=== PATIENT | female | born 1940 | race Caucasian/White ===

== ENCOUNTER → 2016-10-27 | Outpatient (CLI) | payer MEDICARE, OTHER | END | disposition home or self-care (01) | LOC: GMAB 10:23 | PROVIDERS: ATTEND Family Medicine | DX: E78.2 Mixed hyperlipidemia (principal) ==

== ENCOUNTER → 2016-11-09 | Outpatient (CLI) | payer MEDICARE, OTHER | END | disposition home or self-care (01) | LOC: GMAB 14:11 | PROVIDERS: ATTEND Family Medicine | DX: R30.0 Dysuria (principal) ==

== ENCOUNTER 2016-11-25 17:56 | Emergency (ER) | payer MEDICARE, OTHER ==
[2016-11-25] MEDS ORDERED: SODIUM CHLORIDE 0.9% 1000ML 1,000 ML IVS ONE (18:26)
[2016-11-25 18:28] VITALS: O2SAT 94
--- NOTE | 2016-11-25 18:29 | ED.PDOC ---
History of Present Illness - General Chief Complaint: GI Problem Stated Complaint: Diarrhea and fever X 3 days Time Seen by Provider: 11/25/16 18:16 Information Source: patient, RN notes reviewed, Vital Signs reviewed, family Exam Limitations: no limitations - History of Present Illness Initial Comments: Patient comes in with 3 days of diarrhea, fever, abd. pain and nausea. She recently finished 5 days of Cipro. Also, her recently completed treatment for H.Pylori. Abdominal Pain Onset Location: generalized abdomen Pain Radiation: no radiation Quality: moderate, cramping Timing/Duration: days - 3 Improving Factors: nothing Worsening Factors: nothing Associated Symptoms: diarrhea, fever/chills, fatigue, nausea/vomiting Review of Systems - Review of Systems Constitutional: States: chills, fever, malaise EENTM: States: no symptoms reported Respiratory: States: no symptoms reported. Denies: cough, short of breath Cardiology: States: no symptoms reported. Denies: chest pain, palpitations Gastrointestinal/Abdominal: States: see HPI, abdominal pain, diarrhea, nausea. Denies: vomiting Genitourinary: States: other - just finished treatment for UTI Musculoskeletal: States: no symptoms reported Skin: States: no symptoms reported Neurological: States: no symptoms reported. Denies: headache Past Medical History (General) - Patient Medical History Hx of COPD: Yes Hx Cardiac Disorders: Yes - CAD - Vaccination History Hx Influenza Vaccination: Yes - 05/2015 - Social History Hx Tobacco Use: Yes Family Medical History - Family History Mother Family History: Unknown Living Status: Unknown Physical Exam - Physical Exam General Appearance: Alert, Comfortable, No apparent distress, Well Developed, Well Groomed, Well Hydrated, Well Nourished Respiratory: chest non-tender, lungs clear, normal breath sounds, no respiratory distress, no accessory muscle use Cardiovascular/Chest: normal peripheral pulses, regular rate, rhythm, no edema, no gallop, no JVD, no murmur Peripheral Pulses: 2+ Gastrointestinal/Abdominal: abnormal bowel sounds - hyperactive, distended, tenderness - moderate, generalized without guarding or rebound Extremity: normal range of motion, non-tender, normal inspection, no pedal edema Neurologic: no motor/sensory deficits, alert, normal mood/affect, oriented x 3 Skin Exam: normal color, warm/dry Comments: Vital Signs - 24 hr 11/25/16 18:22 Temperature 97.0 F L Pulse Rate [ 82 pulse ox] Respiratory 16 Rate Blood Pressure 152/81 [right brachial ] O2 Sat by Pulse 94 L Oximetry Progress - Progress Progress: 11/25/16 19:57 Discussed lab results and treatment plan with patient and daughter. She has not been able to have a bowel movement in the ER so will send home with sample cup to collect sample. Advised no further Imodium because we want the body to flush out what ever is causing the diarrhea. Recommended resuming a regular diet and increasing fluid/water intake. - Results/Orders Results/Orders: Laboratory Tests 11/25/16 18:47 WBC 6.9 RBC 4.84 Hgb 14.6 Hct 43.5 MCV 90.0 MCH 30.2 MCHC 33.6 RDW 12.5 Plt Count 142 MPV 9.8 Absolute Neuts (auto) 4.10 Absolute Lymphs (auto) 2.00 Absolute Monos (auto) 0.60 Absolute Eos (auto) 0.10 Absolute Basos (auto) 0.10 Neutrophils % 59.9 Lymphocytes % 29.2 Monocytes % 8.4 Eosinophils % 1.6 Basophils % 0.9 Sodium 138 Potassium 3.4 L Chloride 107 Carbon Dioxide 27 Anion Gap 7.4 L BUN 15 Creatinine 0.78 BUN/Creatinine Ratio 19.2 Random Glucose 138 H Serum Osmolality 278.7 Calcium 8.8 Total Bilirubin 0.3 AST 17 ALT 10 Alkaline Phosphatase 39 L Serum Total Protein 6.3 L Albumin 3.6 Globulin 2.7 Albumin/Globulin Ratio 1.3 Amylase 39 Lipase 20 L H. pylori IgG Antibody Negative Departure - Departure Clinical Impression: Diarrhea, Dehydration Time of Disposition: 20:00 Disposition: Discharge to Home or Self Care Condition: Good Departure Forms: ED Discharge - Pt. Copy, Patient Portal Self Enrollment Instructions: DI for Diarrhea and Traveler's Diarrhea -- Adult, DI for Dehydration -- Adult Diet: resume usual diet Activity: increase activity as tolerated Home Medications: Ambulatory Orders Aspirin [Aspirin Adult Low Dose] 81 mg PO DAILY 11/01/15 Calcium 600 mg PO DAILY 11/01/15 Clopidogrel Bisulfate [Plavix] 75 mg PO QD 11/01/15 Duloxetine HCl 60 mg PO DAILY 11/01/15 Esomeprazole Magnesium 40 mg PO DAILY 11/01/15 Fenofibrate 160 mg PO DAILY 11/01/15 Fluticasone/Salmeterol 100/50 [Advair Diskus] 1 puff INH BID 11/01/15 Metoprolol Tartrate 25 mg PO BID 11/01/15 Raloxifene HCl [Evista] 60 mg PO DAILY 11/01/15 Rosuvastatin Calcium [Crestor] 40 mg PO DAILY 11/01/15 Additional Instructions: Increase fluid intake Collect stool sample for C. Diff testing.
[2016-11-25 20:28] VITALS: BP 149/83; TEMP 97.8
== END 2016-11-25 20:28 | disposition home or self-care (01) ==
LOC: ER 17:56
DX: R19.7 Diarrhea, unspecified (principal); E86.0 Dehydration; J44.9 Chronic obstructive pulmonary disease, unspecified; I25.10 Atherosclerotic heart disease of native coronary artery without angina pectoris; Z87.891 Personal history of nicotine dependence
CPT/HCPCS: 36415; 80053; 81001; 82150; 83690; 85025; 86317; 87449; J7030

== ENCOUNTER → 2016-12-13 | Outpatient (CLI) | payer MEDICARE, OTHER ==
--- NOTE | 2016-12-13 11:57 | MAM ---
History: Well woman exam. Date of exam: 12/13/2016 Services provided: Bilateral full field digital screening mammography. CAD, the images were reviewed with R2 computer aided detection. FINDINGS: Glandular tissue is scattered glandular pattern. No prior study is currently available for comparison. No dominant mass, architectural distortion or clustered microcalcification. IMPRESSION: Benign exam Recommendation: Routine annual mammography BIRAD CATEGORY: 2 BENIGN Electronically signed by: Liliya Pérez MD 12/13/2016 11:56 AM CDT
== END | disposition home or self-care (01) ==
LOC: MAMMO 07:55
PROVIDERS: ATTEND Family Medicine
DX: Z12.31 Encounter for screening mammogram for malignant neoplasm of breast (principal)

== ENCOUNTER → 2017-01-26 | Outpatient (CLI) | payer MEDICARE, OTHER | END | disposition home or self-care (01) | LOC: GMAB 14:36 | PROVIDERS: ATTEND Family Medicine | DX: N30.00 Acute cystitis without hematuria (principal) ==

== ENCOUNTER → 2017-02-02 | Outpatient (CLI) | payer MEDICARE, OTHER | LOC: GMAB 17:40 | PROVIDERS: ATTEND Family Medicine | DX: N30.00 Acute cystitis without hematuria (principal) ==

== ENCOUNTER → 2017-03-20 | Outpatient (CLI) | payer MEDICARE, OTHER | END | disposition home or self-care (01) | LOC: GMAB 14:11 | PROVIDERS: ATTEND Family Medicine | DX: N30.00 Acute cystitis without hematuria (principal) ==

== ENCOUNTER → 2017-05-22 | Outpatient (CLI) | payer MEDICARE, OTHER | END | disposition home or self-care (01) | LOC: GMAB 16:53 | PROVIDERS: ATTEND Family Medicine | DX: N39.0 Urinary tract infection, site not specified (principal) ==

== ENCOUNTER → 2017-09-04 | Outpatient (CLI) | payer MEDICARE, OTHER ==
--- NOTE | 2017-09-04 09:00 | CT ---
EXAM DESCRIPTION: Chest w/Contrast CLINICAL HISTORY: 76 years, Female, PULMONARY NODULE COMPARISON: October 30, 2015 TECHNIQUE: Thin-section axial CT images are obtained during rapid bolus administration of nonionic IV contrast media. Reconstructed MPR images are created and reviewed as well. This exam was performed according to our departmental dose-optimization program, which includes automated exposure control, adjustment of the mA and/or kV according to patient size and/or use of iterative reconstruction technique. FINDINGS: Soft tissue thin section imaging of the chest demonstrates a small normal heart without significant pleural effusions with the evidence of previous sternotomy and bypass surgery with extensive coronary calcification and a normal appearance of the upper abdominal structures with previous cholecystectomy noted. Thoracic inlet and superior and middle mediastinum as well as the hilar structures are unremarkable. Mild apical emphysematous and scattered mild parenchymal fibrotic changes are present right middle lobe has changed with coarsened groundglass opacity and a decrease in lung volume in the right middle lobe suggesting partial but incomplete atelectasis that is new from previous October 2015 study. A distinct or definite endobronchial obstruction is not apparent. There is slightly greater amount of dense consolidation in the right medial lung base adjacent to the right cardiac border that was minimally evident on prior studies but slightly more prominent. Persistent air bronchogram suggesting this represents scarring or more dense atelectasis is suspected. There is a stable small pleural-based 5 mm nodule in the anterior right upper lung field, adjacent to the right second costochondral articulation with no change from previous examination. Minimal pleural scarring in the posterior right apex is noted. Additional right-sided pulmonary nodules are not apparent. On the left mild linear scarring in the lingula is noted. Tiny amount of nonspecific pleural thickening posteriorly in the mid lung field is unchanged from prior study. A specific left lung nodule is not identified and no dominant masses or new abnormalities noted. IMPRESSION: 1. Stable changes of upper lung field emphysema and mild basilar scarring with interval development of hazy groundglass opacity and volume loss right middle lobe suggesting partial atelectasis or interstitial infiltrate, new from prior study. 2. Stable 5 mm pleural-based right upper lobe nodule anteriorly, unchanged from prior study. No further evaluation recommended. 3. Mild basilar scarring in the medial right middle lobe with more dense opacification or atelectasis and linear stranding in the left lingular region. 4. Previous sternotomy and bypass surgery with prior cholecystectomy noted within the upper abdomen Electronically signed by: Sandeep Short MD 09/04/2017 9:00 AM [employer]
== END | disposition home or self-care (01) ==
LOC: CT 08:00
PROVIDERS: ATTEND Family Medicine
DX: R91.1 Solitary pulmonary nodule (principal)

== ENCOUNTER 2017-09-05 10:39 | Inpatient (IN) | payer MEDICARE, OTHER ==
--- NOTE | 2017-09-05 11:11 | ED.PDOC ---
History of Present Illness - General Chief Complaint: Respiratory Problem Stated Complaint: difficulty breathing,trouble staying awake Time Seen by Provider: 09/05/17 10:58 Source: patient, family Exam Limitations: no limitations - History of Present Illness Initial Comments: 1 WK SOB. WENT TO PCP 1 WK AGO, HAD NEG FLU AND GAVE ZPACK WHICH SHE FINISHED 3 D AGO. FATIGUED, GEN WEAKNESS. HAS ALB AT HOME FOR COPD AND BREATHING TX DIDN 'T HELP. 57 PACK YR HX, STILL SMOKES 1 PPD. I RECOMMENDED SMOKING CESSATION BUT SHE IS PRE-CONTEMPLATIVE. H/O CABG, FOR WHICH SEES CARDS. Timing/Duration: 1 week, getting worse Severity: moderate Activities at Onset: none Possible Cause: occasional episodes Improving Factors: nothing Worsening Factors: nothing Associated Symptoms: cough, weakness Allergies/Adverse Reactions: Allergies NO KNOWN ALLERGY Allergy (Verified 11/01/15 13:09) Home Medications: Ambulatory Orders Aspirin [Aspirin Adult Low Dose] 81 mg PO DAILY 11/01/15 Calcium 600 mg PO DAILY 11/01/15 Clopidogrel Bisulfate [Plavix] 75 mg PO QD 11/01/15 Duloxetine HCl 60 mg PO DAILY 11/01/15 Esomeprazole Magnesium 40 mg PO DAILY 11/01/15 Fenofibrate 160 mg PO DAILY 11/01/15 Fluticasone/Salmeterol 100/50 [Advair Diskus] 1 puff INH BID 11/01/15 Metoprolol Tartrate 25 mg PO BID 11/01/15 Raloxifene HCl [Evista] 60 mg PO DAILY 11/01/15 Rosuvastatin Calcium [Crestor] 40 mg PO DAILY 11/01/15 Review of Systems - Review of Systems Constitutional: States: weakness. Denies: fever EENTM: Denies: ear pain, nose congestion, throat swelling Respiratory: States: cough, short of breath, wheezing Cardiology: Denies: chest pain, edema, palpitations Gastrointestinal/Abdominal: Denies: abdominal pain, constipation, diarrhea, nausea, vomiting Genitourinary: Denies: dysuria, frequency Musculoskeletal: States: no symptoms reported Skin: States: no symptoms reported Neurological: States: no symptoms reported Endocrine: States: no symptoms reported Hematologic/Lymphatic: States: no symptoms reported All other Systems: Reviewed and Negative Past Medical History (General) - Patient Medical History Hx Stroke: No Hx of COPD: Yes Hx Cardiac Disorders: Yes - CAD Hx Congestive Heart Failure: No Hx Diabetes: No Surgical History: cholecystectomy, coronary bypass surgery - Vaccination History Hx Influenza Vaccination: Yes Hx Pneumococcal Vaccination: Yes - Social History Hx Tobacco Use: Yes Family Medical History - Family History Mother Family History: Unknown Living Status: Unknown Physical Exam - Physical Exam General Appearance: Alert, Well Developed Eyes, Ears, Nose, Throat Exam: normal ENT inspection, TMs normal, pharynx normal Neck: non-tender, full range of motion, supple Respiratory: no accessory muscle use, rhonchi, wheezing, expiration, other - EXP WHEEZE IN ALL LUNG PATHAK. RONCHI IN RML. Cardiovascular/Chest: normal peripheral pulses, regular rate, rhythm, no edema, no gallop, no JVD, no murmur Peripheral Pulses: radial,right: 2+, radial,left: 2+ Gastrointestinal/Abdominal: non tender, soft Extremity: non-tender, normal inspection Neurologic: no motor/sensory deficits, alert, normal mood/affect Skin Exam: normal color, warm/dry Lymphatic: no adenopathy Progress - Results/Orders Results/Orders: PCP, DR GAONA, ORDERED CT YESTERDAY TO F/U ON PULMONARY NODULE. IT SHOWED UNCHANGED 5 MM PULM NODULE IN RML. RML ALSO SHOWED CONSOLIDATION, ATELACTASIS, GROUND GLASS OPACITY, THUS ORDERING CXR IN ER. CBC - NEG CMP - UNREMARKABLE FLU - NEG EKG - NO ST CHANGES. SINUS W/ PROLONGED QT INTERVAL. SHE FOLLOWS WITH CARDS. CXR - RLL PNE. PT HAS FAILED OUTPT ABX AND I AM CONVINCED IF SENT HOME ON A DIFFERENT COURSE OF PO ABX, GIVEN HER SMOKING HX SHE WOULD WORSEN. THUS, I SPOKE WITH HOSPITALIST AND WE ARE ADMITTING. DRAWING BLOOD CX PRIOR TO STARTING ABX (LEVAQUIN IV). THANK YOU, KRISS, FOR ACCEPTING ADMISSION AND FURTHER CARE. Departure - Departure Clinical Impression: Pneumonia, Dyspnea, Tobacco use disorder, continuous Disposition: Admit Patient Condition: Fair Departure Forms: Patient Portal Self Enrollment Diet: resume usual diet Referrals: Mick Gaona MD [Primary Care Provider] - 1-2 Weeks Home Medications: Ambulatory Orders Aspirin [Aspirin Adult Low Dose] 81 mg PO DAILY 11/01/15 Calcium 600 mg PO DAILY 11/01/15 Clopidogrel Bisulfate [Plavix] 75 mg PO QD 11/01/15 Duloxetine HCl 60 mg PO DAILY 11/01/15 Esomeprazole Magnesium 40 mg PO DAILY 11/01/15 Fenofibrate 160 mg PO DAILY 11/01/15 Fluticasone/Salmeterol 100/50 [Advair Diskus] 1 puff INH BID 11/01/15 Metoprolol Tartrate 25 mg PO BID 11/01/15 Raloxifene HCl [Evista] 60 mg PO DAILY 11/01/15 Rosuvastatin Calcium [Crestor] 40 mg PO DAILY 11/01/15 Decision To Admit - Decistion To Admit Decision to Admit Reason: Admit from ER Decision to Admit Date: 09/05/17 Decision to Admit Time: 13:03
[2017-09-05] MEDS ORDERED: SODIUM CHLORIDE 0.9% (FLUSH) 10 ML SYG IV PRN (11:15)
[2017-09-05] MEDS ORDERED: IPRATROPIUM/ALBUTEROL 3 ML VIAL NEB ONE (11:25)
--- NOTE | 2017-09-05 12:20 | RAD ---
EXAM DESCRIPTION: Chest,1 View CLINICAL HISTORY: SOB, WEAKNESS COMPARISON: November 01, 2015 IMPRESSION: Single AP portable upright view of the chest shows cardiac silhouette and pulmonary vasculature to be within normal limits. Postsurgical changes from CABG are again seen. Lungs are normally aerated and clear. No obvious pleural effusion or pneumothorax is seen. Electronically signed by: Dave Castillo MD 09/05/2017 12:19 PM [facility]
[2017-09-05] MEDS ORDERED: levoFLOXacin 750MG IV 750 MG in PREMIX BAG 1 BAG IVPB ONE (12:55)
--- NOTE | 2017-09-05 14:13 | HP ---
SUPERVISING PHYSICIAN: Ryan Davis MD CHIEF COMPLAINT: Shortness of breath. HISTORY OF PRESENT ILLNESS: Ms. Mortensen is a 76 year-old female who has a significant history of chronic obstructive pulmonary disease and is a current smoker. In the past week she has been having some upper respiratory symptoms and was seen by Dr. Gaona and at that time was started on a Z pack and breathing treatments. She took the Z pack, finished that three days previously but continued to have fatigue, weakness and increasing shortness of breath with productive cough. She presented to to the Emergency Department today due to worsening shortness of breath and some drowsiness. A chest x-ray was completed and reviewed, a single view chest, and per Emergency Room physician, Dr.Timothy Peng, it was noted that she had a right lower lobe infiltrate indicating some pneumonia. She did have a CT of the chest on the day prior to admission for investigation of a pulmonary nodule and review of that chest CT with contrast per radiology interpretation showed some emphysema changes and some mild scarring on the upper lung locke with intermittent development of a hazy ground glass opacity, volume loss in the right middle lobe suggesting partial atelectasis and interstitial infiltrate which was new from previous studies. The nodule was noted to be stable at 5 mm in the right upper lobe, unchanged since previous studies. Also mentioned was mild basilar scarring in the right middle lobe with some dense opacification, atelectasis and linear stranding in the left lingular region. Her vital signs showed she was afebrile with a temperature of 98.5. Saturation 91% on room air at rest. Laboratory studies showed a normal white count of 7,700 and chemistries showed normal electrolytes , renal.function and only a slightly elevated BNP. Given the findings on CT and the previous attempt at treatment with antibiotics as an outpatient for upper respiratory symptoms that are worsening and increasing shortness of breath , with the patient having failed to respond to outpatient plan, Dr. Peng, Emergency Room physician, requested the patient be admitted to the hospital for further evaluation and treatment for initiation of antibiotics. Blood cultures were completed and initiation of antibiotics included Levaquin 750 mg. She also had rapid influenza swabs that were both negative for A and B. The patient is now going to be admitted to the medical/surgical floor. She is in stable condition at time of admission. PAST MEDICAL HISTORY: 1. Carotid artery stents totaling 13 since 1998. 2. Coronary artery disease. 3. Coronary artery bypass grafting. 4. Chronic obstructive pulmonary disease. 5. Urinary incontinence. PAST SURGICAL HISTORY: 1. Coronary artery bypass graft, three total vessels. 2. times one. 3. Cholecystectomy. 4. Last colonoscopy was 5 years previous. 5. Nuclear test done in 2013 that demonstrated a fairly anterior apical scar in the left ventricle but no reversible perfusion changes. Her last echocardiogram was 6 months previously and indicated an ejection fraction of 39%. CURRENT MEDICATIONS: 1. Crestor 40 mg daily. 2. Evista 60 mg daily. 3. Metoprolol tartrate 25 mg b.i.d. 4. Advair Diskus one puff inhaled twice a day. 5. Fenofibrate 160 mg daily. 6. Esomeprazole magnesium 40 mg daily. 7. Duloxetine 60 mg daily. 8. Plavix 75 mg daily. 9. Calcium 600 mg daily. 10. Aspirin 81 mg daily. ALLERGIES: No known drug allergies. FAMILY HISTORY: Both other and father are , unknown reasons. SOCIAL HISTORY: The patient lives in [place]. She is recently . She does currently smoke approximately one pack a day, has for well over 40 years. She denies illicit drug or alcohol use. REVIEW OF SYSTEMS: CONSTITUTIONAL: Denies any fever but notes that she has had some weakness. HEENT: Denies any nasal congestion, sore throat, ear pain. RESPIRATORY: As noted in history of present illness. Worsening shortness of breath, wheezing, productive cough. CARDIOVASCULAR: Denies any chest pain, edema or palpitations. GI: Denies abdominal pain, constipation, diarrhea, nausea or vomiting. : Denies dysuria, hematuria, polyuria or other urinary symptoms. NEUROLOGICAL: She denies headaches, syncopal episodes, vision changes or other neurological changes. PHYSICAL EXAMINATION: VITAL SIGNS: Temperature initially 98.5 pulse 82, saturation 91% on room air at rest with blood pressure f 119/75, respirations 20. Admission weight 73.1 kg. GENERAL: The patient was comfortable, resting without any obvious distress. She is well-developed, well-nourished. HEENT: Tympanic membranes clear bilaterally. Oropharynx pink, most without any lesions. NECK: Supple, non-tender with full range of motion. No jugular venous distention. CHEST: There was notable rhonchi with some exploratory wheezing in all locke with some notable rhonchi in the right middle lobe notably on the lateral posterior aspect. CARDIOVASCULAR: Regular rate and rhythm without appreciable murmurs, rubs, or gallops. ABDOMEN: Soft, non-tender, positive bowel sounds. EXTREMITIES: No cyanosis, clubbing, or edema. NEUROLOGIC: She was alert and oriented x3. Cranial nerves II through XII are grossly intact. Facial features were symmetrical. Extraocular movements within normal limits. LABORATORY: White count 7,700, hemoglobin 15.6, hematocrit 47.2, platelet count 162,000, differential showed to be without a left shift. Chemistries showed normal electrolytes with potassium 3.9, BUN 14, creatinine 0.75. Glucose 93, calcium 9.4. Liver functions all showed to be within normal limits. BNP 113. MICROBIOLOGY: Blood cultures pending. Sputum culture pending. Influenza A and B swab both negative. RADIOLOGY: CT of the chest noted on 09/04/17 with contrast per radiology interpretation noted several changes of upper lung field emphysema and mild basilar scarring with interval development with a hazy ground glass opacity and volume loss in the right middle lobe suggesting partial atelectasis or interstitial infiltrate which is new from previous prior study. Also of mention was a stable 5 mm pleural-based right upper lobe nodule anteriorly unchanged from previous studies and a mild basilar scarring to the middle right lobe with more dense opacification or atelectasis with a linear stranding in the left lingular region. Her chest x-ray on admission showed some questionable haziness, infiltrative process per Emergency Room review, the right middle lobe per radiology interpretation, it was noted that the lungs appeared to be normally aerated. There was some pulmonary vasculature to be within normal limits. ASSESSMENT: 1. Exacerbation of chronic obstructive pulmonary disease having failed to respond to outpatient treatment with concerns for community acquired pneumonia of the right middle lobe as on both CT studies in a current smoker. 2. Community acquired right middle lobe pneumonia concerning for possible streptococcus pneumoniae with sputum cultures pending with the patient initiated on IV Levaquin having failed to respond to treatment with azithromycin in an outpatient setting. 3. Significant history of cardiovascular disease with previous stents and a coronary artery bypass graft x3 vessels with last echocardiogram showing to be within the last 6 months with an ejection fraction of 39% with unspecified type, likely from previous cardiovascular disease and previous myocardial infarctions. 4. History of urinary incontinence. 5. Tobacco abuse with a nicotine addiction, encouraged to stop smoking. PLAN: The patient will be admitted to medical/surgical floor, having failed to respond to outpatient treatment plan for upper respiratory infection with concerns for developing pneumonia but a negative influenza testing. Blood cultures were completed prior to initiation of antibiotics to include Levaquin 750 mg which will be continued. Given that she has a significant amount of wheezing and decreased breath sounds and chronic obstructive pulmonary disease, I have started her on Solu-Medrol initially with 80 mg to be followed up with 60 every 6 hours for at least 3 doses. She will also be on aggressive pulmonary hygiene with Duoneb treatments and chest percussion therapy. She will be on DVT prophylaxis as per protocol. We will resume her home medications once they have been updated and verified in the medical records. She has been encouraged to stop smoking and we will utilized the nicotine patch to assist with this. Will anticipate length of stay to be at least 2 to 3 days. We plan to repeat laboratory and radiology studies in the morning. Until discharge, we will continue to monitor and treat appropriately. #[id number] [facility]
[2017-09-05] MEDS ORDERED: ACETAMINOPHEN 325 MG TAB PO PRN (14:26)
[2017-09-05] MEDS ORDERED: ALBUTEROL SULFATE 2.5 MG/3 ML VIAL NEB PRN (14:26)
[2017-09-05] MEDS ORDERED: IV SET AND CAP CHANGE INJ INJ SCH (14:30)
[2017-09-05] MEDS ORDERED: methylPREDNISolone SODIUM SUC 125 MG/2 ML VIAL IV ONE (14:32)
[2017-09-05] MEDS: NICOTINE PATCH 14 MG TD SCH (15:56)
[2017-09-05] MEDS: IPRATROPIUM/ALBUTEROL 3 ML VIAL INH SCH ×2 (16:50→20:33)
[2017-09-05] MEDS ORDERED: PANTOPRAZOLE SODIUM IV 40 MG VIAL ONE (19:24)
[2017-09-05] MEDS ORDERED: CLOPIDOGREL 75 MG TAB PO SCH (20:30)
--- NOTE | 2017-09-05 20:32 | PCM.CORE ---
Physician DVT/VTE - Nurse DVT Assessment & Total Each Risk Factor Represents 3 Points: Age over 75 years Each Risk Factor Represents 1 Point: Hx of smoking past year Each Risk Factor is 1 Point: Serious Lung disease (pnemonia <1month, COPD, emphysema,etc) DVT Assessment Score: 5 - 5 or more Very High Risk Treatments: Early Ambulation *, Sequential Compression Device Pharmacological: Enoxaparin 40mg SQ Daily
[2017-09-05] MEDS: methylPREDNISolone SODIUM SUC 125 MG/2 ML VIAL IV SCH (20:42)
[2017-09-05] MEDS: SODIUM CHLORIDE 0.9% (FLUSH) 10 ML SYG IV PRN (20:42)
[2017-09-05] MEDS ORDERED: METOPROLOL TARTRATE 25 MG TAB PO SCH (21:00)
[2017-09-05] MEDS ORDERED: ENOXAPARIN SODIUM 40 MG/0.4 ML SYG SUBCU SCH (21:00)
[2017-09-06] MEDS: methylPREDNISolone SODIUM SUC 125 MG/2 ML VIAL IV SCH ×2 (02:53→08:51)
[2017-09-06] MEDS ORDERED: PANTOPRAZOLE SODIUM IV 40 MG VIAL IV SCH (06:30)
--- NOTE | 2017-09-06 07:27 | RAD ---
EXAM: Two view chest. INDICATION: Pneumonia. COMPARISON: Chest x-ray: 09/05/2017. FINDINGS: Cardiac silhouette: Unremarkable. [place]: Unremarkable. Lobar consolidation: None. Pleural effusion: None. Pneumothorax: None. Other: None. Bones: Unremarkable. Other: None. IMPRESSION: 1. No acute cardiopulmonary process. Electronically signed by: Indra Gonzalez MD 09/06/2017 7:26 AM [facility] Workstation: [id number]
[2017-09-06] MEDS: IPRATROPIUM/ALBUTEROL 3 ML VIAL INH SCH ×4 (08:26→20:11)
[2017-09-06] MEDS: SODIUM CHLORIDE 0.9% (FLUSH) 10 ML SYG IV PRN (08:51)
[2017-09-06] MEDS: NICOTINE PATCH 14 MG TD SCH (08:52)
[2017-09-06] MEDS: ASPIRIN EC 81 MG TAB PO SCH (08:52)
[2017-09-06] MEDS: DULoxetine HCL 30 MG CAP PO SCH (08:52)
[2017-09-06] MEDS: CLOPIDOGREL 75 MG TAB PO SCH (08:52)
[2017-09-06] MEDS: METOPROLOL TARTRATE 25 MG TAB PO SCH ×2 (08:52→17:13)
[2017-09-06] MEDS ORDERED: NON-FORMULARY MEDICATION 1 EA MIS (Rosuvastatin Calcium [Crestor] 40 MG) PO SCH ×2 (09:00→21:00)
[2017-09-06] MEDS ORDERED: FENOFIBRATE 160 MG PO SCH (09:00)
[2017-09-06] MEDS ORDERED: CALCIUM CARBONATE-VITAMIN D 500 MG TAB PO SCH (09:00)
[2017-09-06] MEDS: CALCIUM CARBONATE-VITAMIN D 500 MG TAB PO SCH (09:17)
[2017-09-06] MEDS: NON-FORMULARY MEDICATION 1 EA MIS (Raloxifene Hcl [Evista] 60 MG) PO SCH (09:52)
[2017-09-06] MEDS ORDERED: methylPREDNISolone SODIUM SUC 40 MG/ML VIAL IV SCH (12:30)
[2017-09-06] MEDS: methylPREDNISolone SODIUM SUC 40 MG/ML VIAL IV SCH ×2 (13:56→19:40)
[2017-09-06] MEDS ORDERED: levoFLOXacin 750MG IV 750 MG in PREMIX BAG 1 BAG IVPB SCH (15:00)
--- NOTE | 2017-09-06 16:00 | PN ---
DATE: 09/06/17 SUPERVISING PHYSICIAN: Ryan Davis M.D. SUBJECTIVE: The patient looks good this morning. She is having significant improvement in her breathing efforts. She is no longer showing any distress. She notes that she slept fairly well through the night and has had no chest pains, nausea, vomiting or any other complications. She has remained afebrile. OBJECTIVE: VITAL SIGNS: Temperature 97.5, pulse 65, blood pressure 146/71, respirations 18, satting 96% on room air at rest. I's and O's show several voids that have not been measured. Weight today is 71.3 kg. CHEST: Lung sounds today are much improved, still diminished towards the bases. There is still just very faint rhonchi heard over the right middle lobe but no wheezing. HEART: Regular rate and rhythm. ABDOMEN: Soft, non-tender. Positive bowel sounds. EXTREMITIES: No clubbing, cyanosis or edema. NEUROLOGIC: She is alert and oriented times three. LABORATORY: White count today is 8,900 with hemoglobin 16.3, hematocrit 49.3, platelet count 178,000. Differential shows a left shift. Chemistries today show normal electrolytes with potassium 3.8, BUN 14, creatinine 0.79, glucose 164, calcium 9.5. MICROBIOLOGY: Sputum culture at 24 hours shows normal yeyo. She has 2 sets of blood cultures that remain negative at 24 hours. RADIOLOGY: Repeat chest x-ray two view chest today per radiology interpretation shows no acute cardiopulmonary process. ASSESSMENT: 1. Acute exacerbation of chronic obstructive pulmonary disease having failed to respond to outpatient treatment plan with concerns for community acquired pneumonia of the right middle lobe as noted on CT studies previous to admission with the patient being a current smoker. 2. Community acquired right middle lobe pneumonia concerning for possible Streptococcal pneumoniae with sputum cultures currently showing normal yeyo with the patient on Levaquin and having a history of failing to respond to outpatient treatment plan with azithromycin. 3. Significant history of cardiovascular disease with previous stents and a coronary artery bypass graft x3 vessels with last echocardiogram showing to be within the last 6 months with an ejection fraction of 39% with unspecified type, likely from previous cardiovascular disease and previous myocardial infarctions. 4. Chronic tobacco abuse with nicotine addiction, continue to be encouraged to stop smoking. 5. History of urinary incontinence. PLAN: Will continue with steroids today and Levaquin. Will plan to start a taper on the Solu-Medrol decreasing to 40 mg every 6 hours for 3 doses with the patient being started on 40 mg p.o. prednisone in the morning. She does have a nicotine patch in place to help with smoking cessation and nicotine withdrawals. She continues with aggressive pulmonary hygiene. Again, will anticipate discharging in the morning with continued treatment plan if clinically stable. Her laboratory today was within normal limits, therefore will not plan to repeat labs in the morning as well as consideration for no repeat of a chest x-ray awaiting clinical reassessment in the morning. Until then, will continue to monitor and treat appropriately. Once discharged she will need close clinical followup with her primary care physician which is Dr. Gaona. #[id number] SHANT
[2017-09-06] MEDS ORDERED: FLUTICASONE/SALMETEROL 100/50 1 PUFF INH INH SCH (20:00)
[2017-09-06] MEDS ORDERED: PANTOPRAZOLE SODIUM TAB 40 MG PO ONE (20:17)
[2017-09-06] MEDS ORDERED: ENOXAPARIN SODIUM 40 MG/0.4 ML SYG SUBCU SCH (21:00)
[2017-09-06] MEDS ORDERED: FENOFIBRATE 150 MG PO SCH (21:00)
[2017-09-07 02:11] VITALS: TEMP 97.8
[2017-09-07] MEDS ORDERED: PANTOPRAZOLE SODIUM TAB 40 MG PO SCH (06:30)
[2017-09-07] MEDS: ASPIRIN EC 81 MG TAB PO SCH (08:00)
[2017-09-07] MEDS: CALCIUM CARBONATE-VITAMIN D 500 MG TAB PO SCH (08:00)
[2017-09-07] MEDS: DULoxetine HCL 30 MG CAP PO SCH (08:00)
[2017-09-07] MEDS: NICOTINE PATCH 14 MG TD SCH (08:00)
[2017-09-07] MEDS: CLOPIDOGREL 75 MG TAB PO SCH (08:00)
[2017-09-07] MEDS: METOPROLOL TARTRATE 25 MG TAB PO SCH (08:00)
[2017-09-07] MEDS: NON-FORMULARY MEDICATION 1 EA MIS (Raloxifene Hcl [Evista] 60 MG) PO SCH (08:01)
[2017-09-07] MEDS: IPRATROPIUM/ALBUTEROL 3 ML VIAL INH SCH (08:03)
[2017-09-07] MEDS ORDERED: predniSONE 20 MG TAB PO ONE (09:00)
[2017-09-07 11:00] VITALS: BP 122/73; O2SAT 94
--- NOTE | 2017-09-07 13:30 | DS ---
SUPERVISING PHYSICIAN: Ryan Davis MD DISCHARGE DIAGNOSIS: 1. Acute exacerbation of chronic obstructive pulmonary disease having failed to respond to outpatient treatment plan with concerns for community acquired pneumonia of the right middle lobe as noted on CT studies previous to admission with the patient being a current smoker. 2. Community acquired right middle lobe pneumonia concerning for possible Streptococcal pneumoniae with sputum cultures currently showing normal yeyo with the patient on Levaquin and having a history of failing to respond to outpatient treatment plan with azithromycin. 3. Significant history of cardiovascular disease with previous stents and a coronary artery bypass graft x3 vessels with last echocardiogram showing to be within the last 6 months with an ejection fraction of 39% with unspecified type, likely from previous cardiovascular disease and previous myocardial infarctions. 4. Chronic tobacco abuse with nicotine addiction, continue to be encouraged to stop smoking. 5. History of urinary incontinence. HISTORY OF PRESENT ILLNESS: This is a 76-year-old female patient who has a significant history of chronic obstructive pulmonary disease and is a current smoker. She previously had some upper respiratory symptoms and was seen by Dr. Gaona and at that time was started on a Z-Brent and breathing treatments. She finished the Z-Brent, but continued to have fatigue, weakness and increasing shortness of breath with productive cough. She presented to to the Emergency Department on the date of admission due to worsening shortness of breath and some drowsiness. A chest x-ray was completed and reviewed, a single view chest , and per Emergency Room physician, Dr.Timothy Peng, it was noted that she had a right lower lobe infiltrate indicating some pneumonia. She did have a CT of the chest on the day prior to admission for investigation of a pulmonary nodule and review of that chest CT showed some emphysematous changes and some mild scarring on the upper lung locke with interval development of a hazy ground glass opacity, volume loss in the right middle lobe suggesting partial atelectasis and interstitial infiltrate which was new from previous studies. The nodule was noted to be stable at 5 mm in the right upper lobe, unchanged since previous studies. Also mentioned was mild basilar scarring in the right middle lobe with some dense opacification, atelectasis and linear stranding in the left lingular region. Her vital signs showed she was afebrile. Oxygen saturations were 91% on room air at rest. Laboratory studies showed a white count of 7.7 and chemistries showed normal electrolytes, renal.function and only a slightly elevated BNP. Given the findings on CT and the previous attempt at treatment with antibiotics as an outpatient for upper respiratory symptoms that have worsened with increasing shortness of breath, with the patient having failed to respond to outpatient plan, she was admitted to the hospital for further evaluation and treatment with initiation of antibiotics as well as steroids.. Blood cultures were completed. She also had rapid influenza swabs that were both negative for flu A and B. HOSPITAL COURSE: She was admitted to the hospital. She was started on Levaquin as well as IV steroids. Initially, she continued to have shortness of breath and that has improved over the last day or so. Her chest x-ray resolved. Her labs were stable. IV steroids were discontinued and she was started on oral steroids. She can be discharged home today. DISCHARGE PLAN: The patient will be discharged home in stable condition. She is to resume her previous diet and has followup with Dr. Gaona in the next one to two weeks. She is to increase activity as tolerated. She has been strongly encouraged to stop smoking. She is to continue her previous home medications which include her Advair as well as nebulizer treatments. I have continued her on 8 additional days of Levaquin as well as a prednisone taper. She is to followup with Dr. Gaona or return to the hospital for any problems or complications. DISCHARGE MEDICATIONS: 1. Nexium. 2. Crestor. 3. Plavix. 4. Low dose aspirin. 5. Metoprolol. 6. Fenofibrate. 7. Duloxetine. 8. Calcium. 9. Evista. 10. Advair. [address] Levaquin[address] Pred[address] Davis is the collaborating physician and available for consultation. #[id number] [facility]
[2017-09-08] MEDS ORDERED: predniSONE 20 MG TAB PO SCH (09:00)
== END 2017-09-07 12:14 | disposition home or self-care (01) | DRG 190 ==
LOC: ER 10:39 → MS 14:10
PROVIDERS: ADMIT Nurse Practitioner Family; ATTEND Nurse Practitioner Acute Care
DX: J44.1 Chronic obstructive pulmonary disease with (acute) exacerbation (principal); J18.9 Pneumonia, unspecified organism; J44.0 Chronic obstructive pulmonary disease with (acute) lower respiratory infection; I25.10 Atherosclerotic heart disease of native coronary artery without angina pectoris; F17.210 Nicotine dependence, cigarettes, uncomplicated; R32 Unspecified urinary incontinence; Z95.1 Presence of aortocoronary bypass graft; I25.2 Old myocardial infarction; Z95.5 Presence of coronary angioplasty implant and graft; Z95.828 Presence of other vascular implants and grafts; Z79.51 Long term (current) use of inhaled steroids; Z79.02 Long term (current) use of antithrombotics/antiplatelets; Z79.82 Long term (current) use of aspirin

== ENCOUNTER → 2017-11-20 | Outpatient (CLI) | payer MEDICARE, OTHER | LOC: GMAB 10:05 | PROVIDERS: ATTEND Family Medicine | DX: Z79.899 Other long term (current) drug therapy (principal); N39.0 Urinary tract infection, site not specified ==

== ENCOUNTER → 2018-01-24 | Outpatient (CLI) | payer MEDICARE, OTHER ==
--- NOTE | 2018-01-26 09:51 | MAM ---
EXAM DESCRIPTION: 3D Screening BILATERAL : Digital Mammography. CLINICAL HISTORY: 77 years Female SCREENING . No complaints. Remote family history of breast cancer. Childbirth. Postmenopausal. Has taken HRT 5 or more years ago.. COMPARISON: 2-D digital screening bilateral study 12/13/2016. Report from prior examination also reviewed. TECHNIQUE: Bilateral CC and MLO projection full-field images, 3-D tomosynthesis digital mammographic technique. CAD not utilized. FINDINGS: The breast parenchymal density pattern is: Scattered areas of fibroglandular density. No skin thickening or nipple retraction. Bilateral axillary lymph nodes. Bilateral solitary microcalcifications and coarse calcifications are in the left breast. Bilateral vascular calcifications. No focal, stellate mass or density, focal asymmetry , and no suspicious microcalcifications bilaterally. Stable mammograms compared to prior study, taking into account differences in mammographic technique IMPRESSION: BI-RADS CATEGORY: 2 - BENIGN FINDINGS. FOLLOW UP: Routine digital bilateral screening, one year interval from January 2018. Written communication explaining the IMPRESSION and follow-up, will be mailed to the patient and referring health care provider. According to the [employer], yearly mammograms are recommended starting at age 40 and continuing as long as a woman is in good health. Any breast change noted on a breast self-exam should be reported promptly to the patient's healthcare provider. Breast MRI is recommended for women with an approximately 20-25% or greater lifetime risk of breast cancer, including women with a strong family history of breast or ovarian cancer and women who have been treated for Hodgkin's disease. A negative mammographic report should not delay tissue diagnosis in patients with significant clinical history or physical findings. Extremely dense breast tissue limits the sensitivity of digital mammography. Electronically signed by: Fred Aragon MD 01/26/2018 9:50 AM CDT
== END ==
LOC: MAMMO 08:30
PROVIDERS: ATTEND Family Medicine
DX: Z12.31 Encounter for screening mammogram for malignant neoplasm of breast (principal)

== ENCOUNTER 2018-02-19 08:27 | Observation (INO) | payer MEDICARE, OTHER ==
[2018-02-19] MEDS ORDERED: ASPIRIN (CHEWABLE) 81 MG TAB ONE (08:38)
--- NOTE | 2018-02-19 09:24 | RAD ---
EXAM DESCRIPTION: Chest,2 Views CLINICAL HISTORY: 77 years Female, cough COMPARISON: Radiographs of the chest dated 09/06/2017. TECHNIQUE: PA and lateral radiographs of the chest were obtained. FINDINGS: Trachea is midline.The cardiomediastinal silhouette is normal in size. The pulmonary vasculature is within normal limits.The lungs are clear with no acute consolidation.No evidence of pleural effusions.No evidence of pneumothorax. IMPRESSION: No acute cardiopulmonary process. Electronically signed by: Rgeina Louise MD 02/19/2018 9:23 AM CDT
--- NOTE | 2018-02-19 09:25 | CT ---
EXAM DESCRIPTION: Head: Computed Tomography. CLINICAL HISTORY: Upper extremity numbness COMPARISON: None. TECHNIQUE: Non-helical axial scans through the skull and brain, at 2.5 mm intervals, non-contrast. Coronal and sagittal 2.0 reconstructions. Total Exam DLP: 752.48 mGy-cm. This exam was performed according to our departmental dose-optimization program which includes automated exposure control, adjustment of the mA and/or kV according to patient size and/or use of iterative reconstruction technique; to reduce radiation dose to as low as reasonably achievable (ALARA). FINDINGS: No hemorrhage, no mass-effect, and no midline shift. Bilateral low-density in the periventricular regions of the white matter and goldberg radiata also low-density in the bilateral basal ganglia. No encephalomalacia. Vascular calcifications anterior circulation; physiologic calcifications in the pineal gland and choroid plexus. No effacement or displacement of the ventricles, CSF spaces, or subdural spaces. No extra axial fluid collection or hemorrhage. No gross abnormalities of the bony calvarium. Thickening/enlargement of the left middle turbinate in the paranasal sinuses with complete obstruction of the gomez bullosa. Mucoperiosteal thickening in the bilateral maxillary antra. Posterior polyp or mucous retention cyst left sphenoid sinus. Mastoid air cells are well aerated. IMPRESSION: 1. No hemorrhage, no mass effect, no midline shift. Periventricular white matter low-density low-density in the basal ganglia most likely related to cerebral microvascular disease. 2. CT scans are insensitive for detecting small CVAs in the first 24 hours after onset. Evaluation of the brain stem is also limited. If symptoms persist, consider NON-EMERGENT MRI scan of the brain with diffusion imaging. 3. Possible inflammation or infection in the left middle turbinate and gomez bullosa. Consider follow-up nonemergent CT scan of the paranasal sinuses for further evaluation. Electronically signed by: Fred Aragon MD 02/19/2018 9:24 AM CDT
--- NOTE | 2018-02-19 11:28 | HP ---
SUPERVISING PHYSICIAN: Ryan Davis MD CHIEF COMPLAINT: Left arm numbness. HISTORY OF PRESENT ILLNESS: This is a 77-year-old female who came into the Emergency Room this morning with a complaint of left arm numbness and tingling along with some paralysis. She states that about 7:40 this morning, she woke up and went to move some pillows and could not move that arm. Within 1 to 2 minutes, the sensation came back and she was able to move her arm again. The episode did not repeat, however, due to her concern for stroke, she came to the Emergency Room. She was evaluated in the Emergency Room by the Emergency Room physician including a CT scan of the brain which did not show any acute stroke. Her labs were unremarkable as well, but she was referred for observation for TIA and stroke rule out. At the time of examination, the patient is alert and oriented. She has no focal deficits on neurologic exam. PAST MEDICAL HISTORY: 1. Hypertension. 2. Coronary artery disease. 3. Carotid artery disease. 4. Chronic obstructive pulmonary disease. 5. Gastroesophageal reflux disease. PAST SURGICAL HISTORY: 1. Coronary artery bypass graft x6. 2. Appendectomy. 3. Cholecystectomy. 4. . 5. Hysterectomy. ALLERGIES: NO KNOWN DRUG ALLERGIES. MEDICATIONS: 1. Crestor 40 mg p.o. daily. 2. Plavix 75 mg p.o. daily. 3. Dexilant 60 mg p.o. daily. 4. Duloxetine 60 mg p.o. daily. 5. Fenofibrate 150 mg 1 tablet q.h.s. 6. Metoprolol 50 mg half tab in the morning, half tab at night. 7. Raloxifene 60 mg p.o. daily. 8. Trelegy Ellipta 100 mcg/62.5 mcg/25 mcg 1 inhalation by mouth daily. 9. Tramadol 50 mg 1 tablet every 4 hours p.r.n. pain. 10. Aspirin 81 mg p.o. daily. 11. Calcium 1500 mg p.o. daily. FAMILY HISTORY: Father had diabetes and is . Mother did not have any medical issues that she can think and is . SOCIAL HISTORY: The patient is a one pack per day smoker for the last 60 years. No alcohol, no illicit drugs. REVIEW OF SYSTEMS: CONSTITUTIONAL: No fever or chills. No recent weight loss or weight gain. NECK: No neck stiffness, swelling or neck pain. RESPIRATORY: No cough, hemoptysis or pleuritic chest pain. CARDIOVASCULAR: No chest pain, palpitations or peripheral edema. GASTROINTESTINAL: No nausea, vomiting, diarrhea, constipation or abdominal pain. GENITOURINARY: No dysuria, frequency or flank pain. HEMATOLOGIC: No easy bruising and no transfusion reaction. MUSCULOSKELETAL: No muscle cramps, joint pain or joint swelling. ENDOCRINE: No polydipsia, polyuria, polyphagia. No heat or cold intolerance. NEUROLOGIC: Positive for left articular margins paresthesia, numbness and paralysis. No syncope, no seizures. PHYSICAL EXAMINATION: VITAL SIGNS: Blood pressure 164/96. Heart rate 65. Respiratory rate 18. Temperature 98.0. Oxygen saturation 95%. GENERAL: Ms. Mortensen is a 77-year-old female in no active distress currently. HEENT: Normocephalic, atraumatic. Pupils are equal and reactive. No nasal drainage. Throat with moist mucosa. NECK: Supple. Midline trachea. No jugular venous distention. CHEST: Symmetrical with equal rise and fall of the chest with inspiration and expiration. Lung sounds are clear to auscultation bilaterally. CARDIOVASCULAR: Regular rate and rhythm. Normal S1, S2. ABDOMEN: Soft. Positive bowel sounds. GENITOURINARY: Deferred. EXTREMITIES: Lower extremities with no edema. Pulses 2+. Capillary refill is less than 2 seconds. NEUROLOGIC: The patient is alert and oriented. Moves all extremities. Extraocular movements are intact. Cranial nerves II-XII are grossly intact. No focal deficits. LABORATORY: Labs and films are as discussed in history of present illness. ASSESSMENT: 1. Transient ischemic attack, rule out stroke. 2. History of carotid artery disease with no documented carotid ultrasound. 3. Coronary artery disease status post coronary artery bypass graft as well as 13 stents. 4. Hyperlipidemia. 5. Continuous nicotine dependency. PLAN: We will admit the patient under observation for transient ischemic attack /stroke protocol. This will include MRI, carotid sonogram. I am continuing her home medications which include Plavix. I am also placing her on Lovenox while she is here, however, if everything remains negative, she will likely be discharged tomorrow. Her previous primary care provider is Dr. Gaona and we will discuss with her whether or not she is going to start seeing another primary care provider since Dr. Gaona has retired. #[id number] SHANT
[2018-02-19] MEDS ORDERED: SODIUM CHLORIDE 0.9% (FLUSH) 10 ML SYG IV PRN (12:01)
[2018-02-19] MEDS ORDERED: NON-FORMULARY MEDICATION 1 EA MIS (Dexlansoprazole [Dexilant] 60 MG) PO SCH (12:15)
[2018-02-19] MEDS ORDERED: NON-FORMULARY MEDICATION 1 EA MIS (Calcium [Calcium] 600 MG) PO SCH (12:15)
[2018-02-19] MEDS ORDERED: FENOFIBRATE 160 MG PO SCH (12:15)
[2018-02-19] MEDS ORDERED: NON-FORMULARY MEDICATION 1 EA MIS (Rosuvastatin Calcium [Crestor] 40 MG) PO SCH (12:15)
[2018-02-19] MEDS ORDERED: IV SET AND CAP CHANGE INJ INJ SCH (12:30)
[2018-02-19] MEDS ORDERED: CLOPIDOGREL 75 MG TAB PO SCH (12:30)
[2018-02-19] MEDS ORDERED: ASPIRIN TABLET 325 MG TAB PO SCH (12:30)
[2018-02-19] MEDS: FENOFIBRIC ACID 135 MG CAP PO SCH (12:45)
[2018-02-19] MEDS: ASPIRIN (CHEWABLE) 81 MG TAB PO SCH (12:45)
[2018-02-19] MEDS: ATORVASTATIN 20 MG TAB PO SCH (12:45)
[2018-02-19] MEDS: DULoxetine HCL 30 MG CAP PO SCH (12:45)
[2018-02-19] MEDS: METOPROLOL TARTRATE 25 MG TAB PO SCH ×2 (12:45→17:38)
[2018-02-19] MEDS: ENOXAPARIN SODIUM 40 MG/0.4 ML SYG SUBCU SCH (12:46)
--- NOTE | 2018-02-19 14:36 | MRI ---
EXAM DESCRIPTION: Brain w/wo Contrast: Magnetic Resonance Imaging. CLINICAL HISTORY: TIA. Patient admitted from the emergency department. COMPARISON: CT scan of the head noncontrast earlier today. Ultrasound carotid duplex bilaterally on this visit. TECHNIQUE: Multiplanar, high-field MRI, multiple conventional sequences, without and with gadolinium IV contrast. No adverse reactions. Multiple axial diffusion sequences. FINDINGS: Bilateral multiple small foci of hyperintense FLAIR and T2-weighted signal in the periventricular white matter and goldberg radiata of the cerebral hemispheres. . Similar small hyperintensities bilateral basal ganglia. No hemorrhage, no cerebral edema, no mass-effect. Normal contrast enhancement. Normal signal in the brainstem and cerebellar hemispheres. No hemorrhage, no cerebral edema, no mass-effect. Normal contrast enhancement. Concordance of the diffusion and non-diffusion sequences with no evidence of acute or subacute infarction. Cortical sulci, ventricles, and other CSF spaces, and the subdural spaces are normally configured. No effacement or displacement. No midline shift. No extra-axial hemorrhage. Normal contrast enhancement. Normal flow signal void in the major vessels of the [place], and the venous sinuses. IACs are symmetric bilaterally. Normal signal in the bilateral mastoid air cells. No mass effect in the bilateral Cerebellopontine angles. Normal contrast enhancement. Pituitary gland occupies most of the sella. Normal contrast enhancement. Base of the cerebellar tonsils is at the level of the foramen magnum. Mucoperiosteal thickening in the paranasal sinuses. Polyp or cyst in the left sphenoid air cell. Swelling of the left middle turbinate with enhancement of the gomez bullosa. The bony calvarium is intact. IMPRESSION: 1. No intra-axial extra-axial hemorrhage. No mass effect or midline shift. No cerebral edema. 2. Bilateral periventricular white matter and goldberg radiata cerebral microvascular disease with no abnormal enhancement, no diffusion restriction. Also involving the bilateral basal ganglia. 3. Paranasal sinus disease with possibly acute inflammatory process in the left middle turbinate. Also involving Gomez bullosa as was seen on the CT scan earlier. Electronically signed by: Fred Aragon MD 02/19/2018 2:35 PM CDT
--- NOTE | 2018-02-19 14:43 | US ---
EXAM DESCRIPTION: Carotid Duplex: ULTRASOUND. CLINICAL HISTORY: TIA COMPARISON: CT scan of the head earlier today. MRI scan of the brain after hospital admission today. TECHNIQUE: Transcutaneous scanning utilizing mccray-scale and Doppler modes to evaluate the bilateral carotid systems and vertebral arteries. Percentage of diameter of stenosis or no stenosis recorded will be based upon NASCET criteria. FINDINGS: Peak systolic/end diastolic (CM-Sec) CCA Right 62/0 Left 45/11. ICA Right proximal 31/6, distal 54/12. Left proximal 64/14, mid 71/16. Vertebral Right 29/10 Left 27/9. ECA (PS Only) Right 59 left 90. ICA/CCA peak systolic ratio: Right 0.9 Left 1.6 ICA/CCA end diastolic ratio: Right n/a Left 1.5 Vertebral arteries: antegrade flow. Comments: Atherosclerotic calcification bilaterally at the common carotid bifurcation. Spectral broadening bilateral proximal ICAs. Color turbulent flow in the proximal and mid right ICA. Area stenosis of the left common carotid bulb is 71%; diameter stenosis 64%. IMPRESSION: 1. Doppler evaluation of the bilateral carotid systems and vertebral arteries shows no hemodynamically significant stenosis. Mccray scale measurement of the area in the left common carotid bulb of 71% is hemodynamically significant. Diameter stenosis was below 70%. 2. Significant amount plaque seen in the bilateral common carotid artery bifurcations bilaterally. Bilateral vertebral arteries showed antegrade-cephalad flow. 3. Consider CTA of the carotid vertebral vessels because of discordance between Doppler and grayscale findings in the left common carotid and left ICA. Electronically signed by: Fred Aragon MD 02/19/2018 2:42 PM CDT
[2018-02-19] MEDS: NICOTINE PATCH 21 MG TD SCH (15:23)
[2018-02-19] MEDS ORDERED: PANTOPRAZOLE SODIUM TAB 40 MG PO ONE (19:18)
[2018-02-19] MEDS: SODIUM CHLORIDE 0.9% (FLUSH) 10 ML SYG IV SCH (20:38)
[2018-02-20 05:33] VITALS: BP 164/84; TEMP 97.8
[2018-02-20] MEDS ORDERED: PANTOPRAZOLE SODIUM TAB 40 MG PO SCH (06:30)
[2018-02-20] MEDS: METOPROLOL TARTRATE 25 MG TAB PO SCH (07:36)
[2018-02-20] MEDS: NICOTINE PATCH 21 MG TD SCH (07:36)
[2018-02-20] MEDS ORDERED: TRELEGY ELLIPTA INH SCH (08:00)
[2018-02-20] MEDS: ASPIRIN (CHEWABLE) 81 MG TAB PO SCH (08:22)
[2018-02-20] MEDS: FENOFIBRIC ACID 135 MG CAP PO SCH (08:22)
[2018-02-20] MEDS: ATORVASTATIN 20 MG TAB PO SCH (08:22)
[2018-02-20] MEDS: ENOXAPARIN SODIUM 40 MG/0.4 ML SYG SUBCU SCH (08:23)
[2018-02-20] MEDS: DULoxetine HCL 30 MG CAP PO SCH (08:23)
[2018-02-20] MEDS: SODIUM CHLORIDE 0.9% (FLUSH) 10 ML SYG IV SCH (08:31)
[2018-02-20] MEDS ORDERED: CALCIUM CARBONATE-VITAMIN D 500 MG TAB PO SCH (09:00)
[2018-02-20] MEDS ORDERED: CLOPIDOGREL 75 MG TAB PO SCH (09:00)
[2018-02-20 11:00] VITALS: O2SAT 93
[2018-02-21] MEDS ORDERED: TRELEGY ELLIPTA INH SCH (08:00)
--- NOTE | 2018-02-22 09:05 | DS ---
SUPERVISING PHYSICIAN: Ryan Davis MD ADMISSION DIAGNOSIS: 1. Transient ischemic attack, rule out stroke. 2. History of carotid artery disease with no documented carotid ultrasound. 3. Coronary artery disease status post coronary artery bypass graft as well as previous stents times 13. 4. Hyperlipidemia. 5. Continued nicotine dependency. DISCHARGE DIAGNOSIS: 1. Transient ischemic attack with concerns for carotid stenosis as noted on ultrasound with the patient being on Plavix and aspirin previous to admission. 2. Coronary artery disease status post coronary artery bypass graft. 3. Hyperlipidemia on statin. 4. Continued nicotine dependency, encouraged to stop smoking. REASON FOR HOSPITALIZATION: Ms. Mortensen is a 77-year-old female patient who presented to the Emergency Room the morning of 02/19/18 with a complaint of left arm numbness and tingling along with some paralysis. She noted that about 7:40 in the morning, she woke up and went to move some pillows and could not move that arm. Within 1 to 2 minutes, the sensation came back and she was able to move her arm again. The episode did not repeat, however, due to her concern for stroke, she came to the Emergency Room. She was evaluated in the Emergency Room with a CT scan of the brain which did not show any acute stroke. Her labs were unremarkable as well, but she was referred for observation for TIA and stroke rule out. At the time of admission, she has no focal deficits on neurologic exam. LABORATORY: CBC was within normal limits. Chemistry showed normal electrolytes with BUN 14, creatinine 0.69, calcium 9.4. Troponin less than 0.02 , triglycerides 167, cholesterol 135, LDL 69, HDL 37. RADIOLOGY: Chest x-ray in the Emergency Department prior to admission per radiologic interpretation showed no acute cardiopulmonary process. She had a CT of the head without contrast and per radiologic interpretation no hemorrhage , no mass effects, no midline shift. Periventricular white matter low density, low density in the basal ganglia most likely related cerebral microvascular disease. Please see report for full details. She did have an MRI of the brain and per radiologic interpretation showed in intraaxial or extraaxial hemorrhage , no mass effect or midline shift, no cerebral edema. Bilateral periventricular white matter and goldberg radiata cerebral microvascular disease, but no abnormal enhancement, no diffusion restriction. Also involving the bilateral basal ganglia. There was note of paranasal sinus disease and possibly acute inflammatory process in the left middle turbinate also involving the gomez bullosa as seen on CT scan earlier. She then had a carotid artery study and per radiologic interpretation Doppler evaluation of bilateral carotid system and vertebral arteries showed no hemodynamically significant stenosis. Mccray scale measurements of the area in the left common carotid bulb with 71% hemodynamically significant with diameter of stenosis below 70%. A significant amount of plaque was seen within bilateral common carotid artery bifurcations with bilateral vertebral arteries showing antegrade cephalad flow. Consideration for CTA for further evaluation. HOSPITAL COURSE: Ms. Mortensen was admitted as noted on 02/19/18 and placed in observation for further rule out of stroke after she had a transient ischemic attack at home. She was asymptomatic on admission to the Medical/Surgical Floor. She had close neurological monitoring and cardiac telemetry and had no recurrence of her symptoms, no neurological deficits and had no acute findings on chest x-ray, head CT, MRI and carotid artery studies. She was already on Plavix and aspirin and statin at time of admission. Her home medications were continued. She showed no changes in her neurological status and it was felt she could followup in the outpatient setting with continued workup with regards to CTA of the neck to further evaluate her carotid artery system. PLAN: Ms. Mortenesn was discharged on 02/20/[address] of the neck after discharge to further evaluate the carotid artery system. She was to resume her home medications to include Plavix, aspirin and a statin as prior to hospital. She was again encouraged to stop smoking. She was given warnings of signs and symptoms and told to return to the Emergency Room should she have any concerning symptoms. Diet at discharge is low-fat, low-cholesterol diet. Activity to increase as tolerated. No new prescriptions were given at time of discharge. Procedures scheduled were CT of the neck as an outpatient. Condition on discharge was stable and improved with followup to be secured through Dr. Santiago's office with appointment scheduled on 02/26/18 at 9:15 in the morning. #[id number] [facility]
== END 2018-02-20 10:14 | disposition home or self-care (01) ==
LOC: ER 08:27 → MS 11:27
PROVIDERS: ADMIT Nurse Practitioner; ATTEND Nurse Practitioner Family
DX: G45.9 Transient cerebral ischemic attack, unspecified (principal); I25.10 Atherosclerotic heart disease of native coronary artery without angina pectoris; E78.5 Hyperlipidemia, unspecified; F17.210 Nicotine dependence, cigarettes, uncomplicated; I10 Essential (primary) hypertension; K21.9 Gastro-esophageal reflux disease without esophagitis; J44.9 Chronic obstructive pulmonary disease, unspecified; I44.7 Left bundle-branch block, unspecified; Z95.1 Presence of aortocoronary bypass graft; Z95.5 Presence of coronary angioplasty implant and graft; Z79.02 Long term (current) use of antithrombotics/antiplatelets; Z79.51 Long term (current) use of inhaled steroids; Z79.82 Long term (current) use of aspirin; Z79.899 Other long term (current) drug therapy
CPT/HCPCS: 96372 ×2; J1650 ×2; 80048; 80061; 36415 ×2; 85025; 84484; 71046; 70450 ×2; 93880; 94760 ×2; 94664; 99406; 99285; 70553; 93005

== ENCOUNTER → 2018-02-22 | Outpatient (CLI) | payer MEDICARE, OTHER ==
--- NOTE | 2018-02-22 13:41 | CT ---
EXAM DESCRIPTION: CTA Neck: Computed Tomography. CLINICAL HISTORY: TIA COMPARISON: Ultrasound carotid duplex study 02/19/2018. MRI scan of the brain and CT scan of the head on the same date. TECHNIQUE: Spiral, axial 2.5 mm scans through the neck soft tissues after bolus infusion of IV contrast. Coronal and sagittal 2.0 mm reconstructions. 3D volume rendering and HD MIP images in rotation display . Percentage of stenosis recorded will be based upon NASCET criteria. Total Exam DLP: Not recorded. This exam was performed according to our departmental CT dose-optimization program which includes automated exposure control, adjustment of the mA and/or kV according to patient size and/or use of iterative reconstruction technique; to reduce radiation dose to as low as reasonably achievable (ALARA). FINDINGS: Minimal atherosclerotic calcification of the origins of the common carotid vessels more left than right. Atherosclerotic calcification in the left common carotid bulb and origin of the left ICA. Approximately 55% diameter stenosis of the left common carotid bulb. Approximately 25% diameter stenosis of the proximal left ICA. Tortuosity of the proximal left ICA with less than 50% diameter stenosis by atherosclerotic calcification in the transverse canal and carotid siphon. Bifurcation of the intracranial left ICA is unremarkable in the left posterior communicating artery is also present. Tortuous proximal right CCA. Bifurcation is negative. Slightly tortuous proximal left ICA with left than 50% diameter stenosis of the transverse portion and in the carotid siphon. Intracranial right ICA bifurcation is negative. Bilateral proximal middle cerebral and anterior cerebral arteries are unremarkable. Bilateral origins of the vertebral arteries are negative. Venous collaterals in the left thoracic inlet and chest wall above the lung partially obscure the origin of the left vertebral artery. Left vertebral artery is dominant. Junction to form the basilar artery unremarkable and customary course of the basilar artery and bifurcation to form the posterior cerebral arteries. No aneurysms, significant stenoses, mass effect or vasculitis in the anterior posterior circulation. Cervical spondylosis C3-4 with canal and neural foraminal narrowing. Minimal emphysematous changes in the included upper lung locke bilaterally. No pneumothorax. Calcification in the anterior mid right thyroid lobe. 4 mm nonenhancing nodule in the left. No soft tissue masses around the thyroid. No enlarged lymph nodes bilaterally. Included salivary glands are negative. Mucoperiosteal thickening in the sphenoid air cell and right maxillary antrum. Mastoid air cells are negative. IMPRESSION: 1. 55% diameter stenosis of the left common carotid bulb and 25% diameter stenosis of the left proximal ICA. These are not hemodynamically significant degrees of stenosis. 2. Remainder of the CTA examination is unremarkable with no aneurysms, mass effect, or vasculitis. 3. Cervical spondylosis C3-4 with canal and neural foraminal narrowing. 4. Minimal emphysematous changes in the bilateral upper lung locke. 5. No soft tissue masses or significant lymph node enlargement in the neck soft tissues. Electronically signed by: Fred Aragon MD 02/22/2018 1:40 PM CDT
== END ==
LOC: CT 08:00
PROVIDERS: ATTEND Family Medicine
DX: G45.9 Transient cerebral ischemic attack, unspecified (principal); R09.89 Other specified symptoms and signs involving the circulatory and respiratory systems; M47.892 Other spondylosis, cervical region

== ENCOUNTER 2018-05-06 16:07 | Inpatient (IN) | payer MEDICARE, OTHER ==
--- NOTE | 2018-05-09 17:10 | HP ---
SUPERVISING PHYSICIAN: Reece Santiago M.D. CHIEF COMPLAINT: Shortness of breath. HISTORY OF PRESENT ILLNESS: This is a 77 year-old female who came to her primary care physician's office this afternoon due to failure to improve from productive cough, shortness of breath as well as fever. Apparently on Monday she went to the Emergency Room and was seen and diagnosed with chronic obstructive pulmonary disease exacerbation, and given Ceftin as well as prednisone. Over the past several days she has failed to improve regarding her shortness of breath and cough which she states is productive with yellow sputum as well as fever. The fever is subjective and she does not give an exact value. The medication that she was prescribed had not made the symptoms any better. In fact, she feels like she has gotten worse. Therefore when she went to see her primary care physician today for followup it was felt that she has failed outpatient therapy and she was referred for direct admission. At time of examination the patient is alert and oriented. She has mild to moderate shortness of breath and is able to speak in short sentences. PAST MEDICAL HISTORY: 1. Transient ischemic attack. 2. Coronary artery disease. 3. Hyperlipidemia. 4. Continued nicotine dependency. 5. Hypertension. 6. Carotid artery disease. 7. Gastroesophageal reflux disease. PAST SURGICAL HISTORY: 1. Coronary artery bypass graft. 2. Appendectomy. 3. Cholecystectomy. 4. section. 5. Hysterectomy. CURRENT MEDICATIONS: 1. Aspirin 81 mg p.o. daily. 2. Calcium 600 mg p.o. daily. 3. Plavix 75 mg at bedtime. 4. Dexilant 60 mg p.o. daily. 5. Duloxetine 60 mg p.o. daily. 6. Fenofibrate 150 mg p.o. at bedtime. 7. Metoprolol 25 mg p.o. b.i.d. 8. Raloxifene 60 mg p.o. daily. 9. Crestor 40 mg p.o. at bedtime. 10. Trelegy Ellipta 100-62.5-25 one inhalation daily. ALLERGIES: NO KNOWN DRUG ALLERGIES. FAMILY HISTORY: Father had diabetes and is . Mother did not have any medical issues that she can think of and she is . SOCIAL HISTORY: The patient still smokes 1 pack per day and has for the last 60 years. No alcohol. No illicit drugs. REVIEW OF SYSTEMS: CONSTITUTIONAL: Positive for fever and chills. No recent weight loss or weight gain. HEENT: No headaches, vision changes, ear pain, nasal congestion or throat pain. RESPIRATORY: Positive for cough. No hemoptysis. No pleuritic chest pain. Positive for shortness of breath and productive cough. CARDIOVASCULAR: No chest pain, palpitations or peripheral edema. GASTROINTESTINAL: No nausea, vomiting, diarrhea, constipation or abdominal pain. GENITOURINARY: No dysuria, frequency or flank pain. HEMATOLOGIC: No easy bruising or transfusion reaction. MUSCULOSKELETAL: No muscle cramps, joint pain or joint swelling. ENDOCRINE: No polydipsia or polyuria or polyphagia. No heat or cold intolerance. NEUROLOGIC: No paresthesias, syncope or seizures. PHYSICAL EXAMINATION: VITAL SIGNS: Blood pressure 132/85, heart rate 76, respiratory rate 22, temperature 98.0, oxygen saturation 95%. GENERAL: Ms. Mortensen is a 77 year-old female who is in mild respiratory distress currently. HEENT: Head is normocephalic and atraumatic. Eyes: Pupils are equal and reactive. Nose: No drainage. Throat: Moist mucosa. NECK: Supple. Midline trachea. No jugular venous distention. CHEST: Symmetrical with equal rise and fall of the chest with inspiration and expiration. Lung sounds with expiratory wheezing and scattered rhonchi bilaterally. CARDIOVASCULAR: Regular rate and rhythm. Normal S1 and S2. ABDOMEN: Soft. Positive bowel sounds. No tenderness to palpation. GENITOURINARY: Exam is deferred. EXTREMITIES: Lower extremities with no edema. 2+ pulses. Capillary refill less than 2 seconds. NEUROLOGIC: The patient is alert and oriented. Moves all extremities. Extraocular movements are intact. LABORATORY: Unremarkable chemistry. BNP is mildly elevated at 109. White count 8.0, hemoglobin 14.4, platelet count 172. There is no left shift. Chest x-ray with no pneumonia or consolidation seen. ASSESSMENT: 1. Chronic obstructive pulmonary disease exacerbation with failed outpatient therapy. 2. Hypertension. 3. Continuous nicotine dependency. 4. History of coronary artery disease. 5. Gastroesophageal reflux disease. PLAN: At this point since she has failed outpatient therapy with p.o. steroids as well as p.o. antibiotics, will start her on IV antibiotics as well as IV corticosteroids along with scheduled nebulizer therapies. I will reduce the steroids step-tinajero as she improves. I have ordered DVT and ulcer prophylaxis on her as well. I will order a sputum culture as she is having productive sputum. Given her normal white count and no left shift, I will hold off on blood cultures for now. [facility][id number] [facility]
[2018-05-09] MEDS ORDERED: methylPREDNISolone SODIUM SUC 125 MG/2 ML VIAL IV ONE (17:14)
[2018-05-09] MEDS: IPRATROPIUM/ALBUTEROL 3 ML VIAL INH SCH ×3 (17:30→23:50)
[2018-05-09] MEDS ORDERED: levoFLOXacin 750MG IV 750 MG in PREMIX BAG 1 BAG IVPB SCH (17:30)
[2018-05-09] MEDS ORDERED: cefTRIAXone SODIUM 1 GM in SODIUM CHL 0.9% 50ML MIN-BAG+ 50 ML IVPB SCH (17:30)
[2018-05-09] MEDS ORDERED: IV SET AND CAP CHANGE INJ INJ SCH (17:30)
[2018-05-09] MEDS ORDERED: SODIUM CHL 0.9% 50ML MIN-BAG+ 50 ML IVPB ONE (17:32)
[2018-05-09] MEDS ORDERED: cefTRIAXone SODIUM 1 GM VIAL ONE (17:33)
[2018-05-09] MEDS: SODIUM CHLORIDE 0.9% (FLUSH) 10 ML SYG IV PRN ×2 (17:41→22:24)
[2018-05-09] MEDS: ENOXAPARIN SODIUM 40 MG/0.4 ML SYG SUBCU SCH (17:42)
--- NOTE | 2018-05-09 17:42 | RAD ---
Chest 2 view on 05/09/2018 CLINICAL INDICATION: Pneumonia COMPARISON: 05/06/2018 FINDINGS: The patient is status post median sternotomy and CABG. Coronary artery stents are noted. Vascular calcification is noted in the aorta. The lungs are clear. Cardiac, hilar and mediastinal contours are within normal limits. Pulmonary vascularity is within normal limits. No bony abnormality is noted. IMPRESSION: No acute disease. Electronically signed by: Raheel Liang 05/09/2018 5:41 PM CDT
[2018-05-09] MEDS: NICOTINE PATCH 21 MG TD SCH (17:43)
[2018-05-09] MEDS: BUDESONIDE NEBS 0.5 MG/2 ML VIAL NEB SCH (20:37)
[2018-05-09] MEDS ORDERED: methylPREDNISolone SODIUM SUC 40 MG/ML VIAL ONE (20:41)
[2018-05-09] MEDS: METOPROLOL TARTRATE 25 MG TAB PO SCH (21:14)
[2018-05-09] MEDS: CLOPIDOGREL 75 MG TAB PO SCH (21:14)
[2018-05-09] MEDS: NON-FORMULARY MEDICATION 1 EA MIS (Rosuvastatin Calcium [Crestor] 40 MG) PO SCH (21:51)
[2018-05-09] MEDS: FENOFIBRATE 150 MG PO SCH (21:51)
[2018-05-09] MEDS: methylPREDNISolone SODIUM SUC 40 MG/ML VIAL IV SCH (22:24)
[2018-05-10] MEDS ORDERED: methylPREDNISolone SODIUM SUC 40 MG/ML VIAL ONE (02:10)
[2018-05-10] MEDS ORDERED: PANTOPRAZOLE SODIUM IV 40 MG VIAL ONE (02:10)
[2018-05-10] MEDS: IPRATROPIUM/ALBUTEROL 3 ML VIAL INH SCH ×5 (04:54→20:15)
[2018-05-10] MEDS: SODIUM CHLORIDE 0.9% (FLUSH) 10 ML SYG IV PRN (06:15)
[2018-05-10] MEDS: methylPREDNISolone SODIUM SUC 40 MG/ML VIAL IV SCH ×3 (06:15→17:48)
[2018-05-10] MEDS ORDERED: PANTOPRAZOLE SODIUM IV 40 MG VIAL IV SCH (06:30)
--- NOTE | 2018-05-10 06:52 | RAD ---
EXAM DESCRIPTION: Chest,1 View CLINICAL HISTORY: 77 years Female, Pneumonia COMPARISON: 05/09/2018 IMPRESSION: The heart is stable in size, with median sternotomy wires and changes of prior cardiac surgery. Atherosclerosis of the thoracic aorta. Lungs are hyperexpanded with changes of emphysema. No confluent airspace consolidation, pleural effusion, or pneumothorax. No acute osseous abnormality. Electronically signed by: Wilfred Head MD 05/10/2018 6:51 AM CDT
[2018-05-10] MEDS: NICOTINE PATCH 21 MG TD SCH (08:53)
[2018-05-10] MEDS: METOPROLOL TARTRATE 25 MG TAB PO SCH ×2 (08:53→20:36)
[2018-05-10] MEDS: levoFLOXacin 500 MG TAB PO SCH (08:55)
[2018-05-10] MEDS: ASPIRIN (CHEWABLE) 81 MG TAB PO SCH (08:55)
[2018-05-10] MEDS: BUDESONIDE NEBS 0.5 MG/2 ML VIAL NEB SCH ×2 (09:00→20:15)
[2018-05-10] MEDS ORDERED: NON-FORMULARY MEDICATION 1 EA MIS (Calcium [Calcium] 600 MG) PO SCH (09:00)
[2018-05-10] MEDS: FLUTICASONE UMECLIDINIUM VILAN IN SCH (09:14)
[2018-05-10] MEDS: DULoxetine HCL 30 MG CAP PO SCH (09:19)
--- NOTE | 2018-05-10 09:51 | PN ---
SUPERVISING PHYSICIAN: Ellen Santiago MD DATE: 05/10/18 SUBJECTIVE: The patient states she feels much better than she did yesterday. She does not feel like she is wheezing as much and the cough is improved as well. OBJECTIVE: VITAL SIGNS: Overnight, the patient was afebrile. Blood pressure 131/75. Heart rate 62. Respiratory rate 18. Temperature currently 97.6. Oxygen saturation 98% on supplemental oxygen. GENERAL: Ms. Mortensen is a 77-year-old female in no acute distress. NEUROLOGIC: Alert and oriented. LUNGS: Still diminished. She does have a little bit of wheeze in right upper lung field, but for the most part, it is much improved from yesterday. CARDIOVASCULAR: Regular rate and rhythm. Normal S1, S2. ABDOMEN: Soft. Positive bowel sounds. EXTREMITIES: Lower extremities with pulses 2+. Capillary refill is less than 2 seconds. LABORATORY: White count 7.2, hemoglobin 14.9, hematocrit 45.6, platelet count 173. Chemistry unremarkable. Chest x-ray shows no findings of consolidation. ASSESSMENT: 1. Chronic obstructive pulmonary disease exacerbation with failed outpatient therapy. 2. Hypertension. 3. Continuous nicotine dependency. 4. History of coronary artery disease. 5. Gastroesophageal reflux disease. PLAN: I am going to reduce her corticosteroids. I am also going to just put her on p.o. Levaquin and take her off the IV Levaquin and Rocephin. I am going to put her on p.o. proton pump inhibitor. We still do not have results of her sputum culture as of yet. If she continues to improve over the next 24 hours, she can probably go home tomorrow with titrating dose of steroids and p.o. Levaquin. #[id number] [facility]
[2018-05-10] MEDS: NON-FORMULARY MEDICATION 1 EA MIS (Raloxifene Hcl [Raloxifene Hydrochloride] 60 MG) PO SCH (10:48)
[2018-05-10] MEDS: ENOXAPARIN SODIUM 40 MG/0.4 ML SYG SUBCU SCH (17:48)
[2018-05-10] MEDS ORDERED: TEMAZEPAM 15 MG CAP PO PRN (20:14)
[2018-05-10] MEDS: CLOPIDOGREL 75 MG TAB PO SCH (20:36)
[2018-05-10] MEDS: NON-FORMULARY MEDICATION 1 EA MIS (Rosuvastatin Calcium [Crestor] 40 MG) PO SCH (20:36)
[2018-05-10] MEDS: FENOFIBRATE 150 MG PO SCH (20:36)
[2018-05-10] MEDS ORDERED: ATORVASTATIN 20 MG TAB PO SCH (21:00)
[2018-05-10] MEDS ORDERED: FENOFIBRIC ACID 135 MG CAP PO SCH (21:00)
[2018-05-11] MEDS: methylPREDNISolone SODIUM SUC 40 MG/ML VIAL IV SCH ×2 (00:12→06:11)
[2018-05-11] MEDS: IPRATROPIUM/ALBUTEROL 3 ML VIAL INH SCH ×3 (00:24→09:01)
[2018-05-11] MEDS ORDERED: OMEPRAZOLE CAP 20 MG CAP ONE (03:56)
[2018-05-11] MEDS ORDERED: OMEPRAZOLE CAP 20 MG CAP PO SCH (06:30)
[2018-05-11] MEDS ORDERED: CALCIUM CARBONATE (ANTACID) 500 MG CHEWABLE TAB PO ONE (06:59)
[2018-05-11] MEDS: DULoxetine HCL 30 MG CAP PO SCH (08:27)
[2018-05-11] MEDS: METOPROLOL TARTRATE 25 MG TAB PO SCH (08:28)
[2018-05-11] MEDS: ASPIRIN (CHEWABLE) 81 MG TAB PO SCH (08:28)
[2018-05-11] MEDS: NICOTINE PATCH 21 MG TD SCH (08:28)
[2018-05-11] MEDS: levoFLOXacin 500 MG TAB PO SCH (08:31)
[2018-05-11] MEDS: NON-FORMULARY MEDICATION 1 EA MIS (Raloxifene Hcl [Raloxifene Hydrochloride] 60 MG) PO SCH (08:32)
[2018-05-11] MEDS ORDERED: CALCIUM CARBONATE (ANTACID) 500 MG CHEWABLE TAB PO SCH (09:00)
[2018-05-11] MEDS: BUDESONIDE NEBS 0.5 MG/2 ML VIAL NEB SCH (09:01)
[2018-05-11] MEDS: FLUTICASONE UMECLIDINIUM VILAN IN SCH (09:01)
[2018-05-11 10:04] VITALS: BP 171/80; TEMP 97.9; O2SAT 90
[2018-05-11] MEDS ORDERED: INFLUENZA VIRUS VACC (ADULT) 0.5 ML SYG IM ONE (10:38)
--- NOTE | 2018-05-14 10:40 | DS ---
SUPERVISING PHYSICIAN: Reece Santiago MD ADMISSION DIAGNOSES: 1. Chronic obstructive pulmonary disease exacerbation with failed outpatient therapy. 2. Hypertension. 3. Continuous nicotine dependency. 4. History of coronary artery disease. 5. Gastroesophageal reflux disease. DISCHARGE DIAGNOSES: 1. Chronic obstructive pulmonary disease exacerbation having failed to respond to outpatient treatment measures, responding well to aggressive pulmonary hygiene, bronchodilators and parenteral antibiotics. 2. Hypertension, stable. 3. Continuous nicotine dependency on nicotine patch. 4. History of coronary artery disease. 5. Gastroesophageal reflux disease without exacerbation. REASON FOR HOSPITALIZATION: Ms. Mortensen is a 77 year-old female patient who presented from her primary care physician office in the afternoon due to failure to improve, having a productive cough, shortness of breath as well as fever. On Monday, she went to the Emergency Room and received a diagnosis of chronic obstructive pulmonary disease exacerbation and at that time was given Cafatine as well as tapering prednisone. In the past several days she has failed to improve regarding her shortness of breath and cough which she says is productive with a yellow sputum as well as fever. Her fever was subjective, she does not have an exact value. The medication she was prescribed has not made the symptoms any better, in fact, she feels she has gotten worse. She went to her primary care physician office on the date of admission for followup and was told she failed outpatient therapy and was referred for direct admission. She was admitted in stable condition. Initially , she was showing mild to moderate shortness of breath but able to speak in short sentences. LABORATORY STUDIES: White count on admission 8,000, discharge 7,200. Hemoglobin and hematocrit were stable at 42.9 and 45.6 respectively with a platelet count of 173,000. Differential showed to be without a left shift. Chemistries showed normal electrolytes both on admission and discharge. Carbon dioxide was 29, BUN 13, creatinine 0.79, liver functions all within normal limits. Magnesium was within normal limits and BNP was slightly elevated at 109. Lactic acid in the clinic was 0.9. MICROBIOLOGY: Sputum culture was pending at time of admission with initial report showing abundant streptococcus pneumoniae. RADIOLOGY: Initial chest x-ray on admission per radiology interpretation showed no acute disease. Chest x-ray on day before discharge per radiology interpretation for followup showed hyperexpanded lungs with emphysema with no confluent airspace consolidations, pleural effusion or pneumothorax. HOSPITAL COURSE: Ms. Mortensen was admitted on 05/06/18 for exacerbation of chronic obstructive pulmonary and started on Solu-Medrol tapering along with antibiotic coverage with Levaquin and Rocephin. She had aggressive pulmonary hygiene and bronchodilator therapy and was showing good improvement. On the morning of discharge her ambulation studies showed saturation of 98% on rest. On room air she was 98%, during ambulation she dropped to 93%, she was able to ambulate 574 feet and post ambulation 7 minutes was 91%. It was felt she had clinically stabilized and improved well enough to continue with outpatient management. PLAN: Ms. Mortensen was discharged on 05/11/18 with instructions to followup with her primary care physician, Dr. Santiago, on 05/17 at 11:00 AM. She was again encouraged to stop smoking. She was to resume her home medications as instructed and take new medications as directed including her antibiotic and nicotine patch. She was told to return to the hospital or call Dr. Santiago' s office if she had concerning symptoms. Discharge diet was regular diet as tolerated. Increase activities as tolerated. New medications at discharge: 1. Albuterol inhaler one puff every 4 hours as needed. 2. Proventil nebs 2.5 mg #60. 3. Levaquin 750 mg, #7. 4. Nicotine patch 21 mg, 42 patches. 5. Prednisone tapering dose with 10 mg tablets, 40 mg x 3 days, 30 mg x 3 days and 20 mg x 3 days, then follow with 10 mg until seen in the office. Condition on discharge was stable and improved. #[id number] [facility]
== END 2018-05-11 11:40 | disposition home or self-care (01) | DRG 192 ==
LOC: MS 16:07 → UNDOADMIN 05-09 16:55 → MS 05-11 09:23
PROVIDERS: ADMIT Nurse Practitioner; ATTEND Nurse Practitioner Family
DX: J44.1 Chronic obstructive pulmonary disease with (acute) exacerbation (principal); I10 Essential (primary) hypertension; I25.10 Atherosclerotic heart disease of native coronary artery without angina pectoris; K21.9 Gastro-esophageal reflux disease without esophagitis; E87.5 Hyperkalemia; F17.210 Nicotine dependence, cigarettes, uncomplicated; Z95.1 Presence of aortocoronary bypass graft; Z90.49 Acquired absence of other specified parts of digestive tract; Z79.82 Long term (current) use of aspirin; Z79.02 Long term (current) use of antithrombotics/antiplatelets; Z86.73 Personal history of transient ischemic attack (TIA), and cerebral infarction without residual deficits; Z79.899 Other long term (current) drug therapy

== ENCOUNTER 2018-11-19 12:10 | Inpatient (IN) | payer MEDICARE, OTHER ==
--- NOTE | 2018-11-19 12:15 | HP ---
SUPERVISING PHYSICIAN: Ryan Davis MD CHIEF COMPLAINT: Shortness of breath HISTORY OF PRESENT ILLNESS: This is a 78 year-old female who presented to her primary care physician's office for complaints of a cough which is productive with whitish sputum, fever and shortness of breath with wheezing. Apparently, this started yesterday. She does have a history of chronic obstructive pulmonary disease and continues to smoke, although this morning she states that when she woke up she told herself she was not going to smoke anymore. She went to her primary care physician's office where they did a workup which included a chest x-ray and labs. The CBC was unremarkable. Chest x-ray did not show any acute cardiopulmonary findings, however, due to her shortness of breath she was referred for admission for chronic obstructive pulmonary disease exacerbation. On examination, the patient is alert. She is coughing and unable to complete a sentence without coughing but other than that she does not appear to be in any significant distress. PAST MEDICAL HISTORY: 1. Chronic obstructive pulmonary disease. 2. Transient ischemic attack. 3. Coronary artery disease. 4. Hyperlipidemia. 5. Continued nicotine dependency. 6. Hypertension. 7. Carotid artery disease. 8. Gastroesophageal reflux disease. PAST SURGICAL HISTORY: 1. Coronary artery bypass graft. 2. Appendectomy. 3. Cholecystectomy. 4. section. 5. Hysterectomy. CURRENT MEDICATIONS: 1. Aspirin 81 mg p.o. daily. 2. Calcium 600 mg p.o. daily. 3. Plavix 75 mg at bedtime. 4. Dexilant 60 mg p.o. daily. 5. Duloxetine 60 mg p.o. daily. 6. Fenofibrate 150 mg p.o. at bedtime. 7. Metoprolol 25 mg p.o. b.i.d 8. Raloxifene 60 mg p.o. daily. 9. Crestor 40 mg p.o. at bedtime. 10. Trelegy one inhalation daily. 11. Albuterol inhaler, one puff every 4 hours as needed. 12. Albuterol Nebs 2.5 mg per 3 cc every 4 hours as needed. ALLERGIES: NO KNOWN DRUG ALLERGIES. FAMILY HISTORY: Father had diabetes and is . Mother did not have any significant past medical history but she is .. SOCIAL HISTORY: The patient smokes one pack per day and has for the last 60 years. No alcohol. No illicit drugs. REVIEW OF SYSTEMS: CONSTITUTIONAL: Positive for fever and chills. No recent weight loss or weight gain. HEENT: No headaches, vision changes, ear pain, nasal congestion or throat pain. RESPIRATORY: Positive for cough. No hemoptysis. No pleuritic chest pain. Positive for shortness of breath and productive sputum production . CARDIOVASCULAR: No chest pain, palpitations or peripheral edema. GASTROINTESTINAL: No nausea, vomiting, diarrhea, constipation or abdominal pain. GENITOURINARY: No dysuria, frequency or flank pain. HEMATOLOGIC: No easy bruising or transfusion reaction. MUSCULOSKELETAL: No muscle cramps, joint pain or joint swelling. ENDOCRINE: No polydipsia or polyuria or polyphagia. No heat or cold intolerance. NEUROLOGIC: No paresthesias, syncope or seizures. PHYSICAL EXAMINATION: VITAL SIGNS: Blood pressure 122/79, heart rate 80, respiratory rate 18, temperature 97.8, oxygen saturation 95%. GENERAL: Ms. Mortensen is a 78 year-old female who does not appear in any significant distress at this time but is bothered by the cough.. HEENT: Head is normocephalic and atraumatic. Eyes: Pupils are equal and reactive. Nose: No drainage. Throat: Moist mucosa. NECK: Supple. Midline trachea. No jugular venous distention. CHEST: Symmetrical with equal rise and fall of the chest with inspiration and expiration. Lung sounds with diffuse wheezing bilaterally and some fine rhonchi bilaterally as well. CARDIOVASCULAR: Regular rate and rhythm. Normal S1 and S2. ABDOMEN: Soft. Positive bowel sounds. No tenderness to palpation. No organomegaly. GENITOURINARY: Exam is deferred. EXTREMITIES: Lower extremities with no edema. 2+ pulses. Capillary refill less than 2 seconds. NEUROLOGIC: She is alert and oriented ad moves all extremities. Extraocular movements are intact. Labs and films are discussed in the history of present illness. ASSESSMENT: 1. Chronic obstructive pulmonary disease exacerbation. 2. Hypertension. 3. Continuous nicotine dependency 4. History of coronary artery disease without evidence of any acute complications secondary to this. 5. Gastroesophageal reflux disease. PLAN: Due to her fever, I am going to start her on empiric IV antibiotics and place her on IV corticosteroids along with scheduled neb treatment s as well. We will resume her home medications, place her on Lovenox for DVT prophylaxis and resume her Dexilant for GI stress ulcer prophylaxis as well. We will try to obtain a sputum culture from her as well. [id number] [facility]
[2018-11-19] MEDS ORDERED: MORPHINE SULFATE INJ 10 MG/ML VIAL IV PRN (13:27)
[2018-11-19] MEDS ORDERED: SODIUM CHLORIDE 0.9% (FLUSH) 10 ML SYG IV PRN (13:27)
[2018-11-19] MEDS ORDERED: HYDROcodone 5MG/APAP 325MG 1 EA TAB PO PRN (13:27)
[2018-11-19] MEDS ORDERED: TEMAZEPAM 15 MG CAP PO PRN (13:27)
[2018-11-19] MEDS ORDERED: IV SET AND CAP CHANGE INJ INJ SCH (13:30)
[2018-11-19] MEDS: IPRATROPIUM/ALBUTEROL 3 ML VIAL INH SCH ×4 (14:01→23:46)
[2018-11-19] MEDS: methylPREDNISolone SODIUM SUC 40 MG/ML VIAL IV SCH ×2 (14:56→18:40)
[2018-11-19] MEDS: levoFLOXacin 750MG IV 750 MG in PREMIX BAG 1 BAG IVPB SCH (14:57)
[2018-11-19] MEDS: ENOXAPARIN SODIUM 40 MG/0.4 ML SYG SUBCU SCH (15:02)
[2018-11-19] MEDS: NICOTINE PATCH 14 MG TD SCH (15:40)
[2018-11-19] MEDS ORDERED: PANTOPRAZOLE SODIUM TAB 40 MG PO ONE (19:55)
[2018-11-19] MEDS: ATORVASTATIN 20 MG TAB PO SCH (20:31)
[2018-11-19] MEDS: FENOFIBRIC ACID 135 MG CAP PO SCH (20:34)
[2018-11-19] MEDS: CLOPIDOGREL 75 MG TAB PO SCH (20:34)
[2018-11-19] MEDS: METOPROLOL TARTRATE 25 MG TAB PO SCH (20:34)
[2018-11-20] MEDS: methylPREDNISolone SODIUM SUC 40 MG/ML VIAL IV SCH ×3 (00:04→20:46)
[2018-11-20] MEDS: IPRATROPIUM/ALBUTEROL 3 ML VIAL INH SCH ×5 (04:05→20:40)
[2018-11-20] MEDS: PANTOPRAZOLE SODIUM TAB 40 MG PO SCH (06:17)
[2018-11-20] MEDS ORDERED: CALCIUM CARBONATE (ANTACID) 500 MG CHEWABLE TAB PO ONE (07:30)
--- NOTE | 2018-11-20 07:49 | RAD ---
CHEST 11/20/2018 CLINICAL HISTORY: COPD exacerbation COMPARISON: Chest 05/10/2018 TECHNIQUE: [AP] Chest. FINDINGS: Borderline cardiac enlargement. There is mild enlargement of the main pulmonary artery. Mild aortic atherosclerosis with sternal wires and mediastinal clips again noted. Lungs are hyperinflated but otherwise clear. Pleural spaces are clear. Unremarkable soft tissues and bones. IMPRESSION: 1. No acute chest disease. Hyperinflation. 2. Suggestion of pulmonary artery hypertension. 3. Postoperative changes appear stable. Electronically signed by: Georgette Bravo DO 11/20/2018 7:46 AM CDT
[2018-11-20] MEDS: FLUTICASONE UMECLIDINIUM VILAN IN SCH ×2 (07:55→08:21)
[2018-11-20] MEDS: ASPIRIN (CHEWABLE) 81 MG TAB PO SCH (08:20)
[2018-11-20] MEDS: CALCIUM CARBONATE (ANTACID) 500 MG CHEWABLE TAB PO SCH (08:20)
[2018-11-20] MEDS: DULoxetine HCL 30 MG CAP PO SCH (08:20)
[2018-11-20] MEDS: NICOTINE PATCH 14 MG TD SCH (08:20)
[2018-11-20] MEDS: RALOXIFENE HCL 60 MG PO SCH (08:21)
[2018-11-20] MEDS ORDERED: NON-FORMULARY MEDICATION 1 EA MIS (Dexlansoprazole [Dexilant] 60 MG) PO SCH (09:00)
[2018-11-20] MEDS: REMOVE OLD PATCH TOP SCH (09:12)
[2018-11-20] MEDS: METOPROLOL TARTRATE 25 MG TAB PO SCH ×2 (10:47→20:46)
[2018-11-20] MEDS: ENOXAPARIN SODIUM 40 MG/0.4 ML SYG SUBCU SCH (13:23)
[2018-11-20] MEDS: levoFLOXacin 750MG IV 750 MG in PREMIX BAG 1 BAG IVPB SCH (13:23)
[2018-11-20] MEDS ORDERED: diphenhydrAMINE HCL 25 MG CAP PO PRN (16:40)
--- NOTE | 2018-11-20 17:39 | PN ---
DATE: 11/20/18 SUPERVISING PHYSICIAN: Ryan Davis M.D. SUBJECTIVE: The patient feels better this morning. States she is breathing better. OBJECTIVE: Blood pressure 126/71, heart rate 91, respiratory rate 18, temperature 97.7, oxygen saturation 97%. GENERAL: Ms. Mortensen is a 78 year-old female in no active distress. NEUROLOGIC: She is alert and oriented. LUNGS: Still with a wheeze but is quite a bit improved from yesterday. CARDIOVASCULAR: Regular rate and rhythm. Normal S1 and S2. ABDOMEN: Soft, positive bowel sounds. EXTREMITIES: Lower extremities with no edema. LABORATORY: Labs are reviewed and are unremarkable. ASSESSMENT: 1. Chronic obstructive pulmonary disease exacerbation. 2. Hypertension. 3. Continuous nicotine dependency 4. History of coronary artery disease with no evidence of acute complications. 5. Gastroesophageal reflux disease. PLAN: She is clinically improved. Labs are unremarkable. I am going to reduce her steroids to half a dose which will be 40 mg every 12 hours. I will continue the antibiotics and other medications at this time. If she does well over the next 24 hours she can probably be changed to p.o. steroids and p.o. antibiotics, and then consider discharge in the next 24 to 48 hours. #[id number] [facility]
[2018-11-20] MEDS: ATORVASTATIN 20 MG TAB PO SCH (20:45)
[2018-11-20] MEDS: CLOPIDOGREL 75 MG TAB PO SCH (20:46)
[2018-11-20] MEDS: FENOFIBRIC ACID 135 MG CAP PO SCH (20:46)
[2018-11-21] MEDS: IPRATROPIUM/ALBUTEROL 3 ML VIAL INH SCH ×6 (00:12→20:12)
[2018-11-21] MEDS: PANTOPRAZOLE SODIUM TAB 40 MG PO SCH (06:06)
[2018-11-21] MEDS ORDERED: CALCIUM CARBONATE (ANTACID) 500 MG CHEWABLE TAB PO ONE (07:30)
[2018-11-21] MEDS: FLUTICASONE UMECLIDINIUM VILAN IN SCH (07:36)
[2018-11-21] MEDS: DULoxetine HCL 30 MG CAP PO SCH (08:25)
[2018-11-21] MEDS: NICOTINE PATCH 14 MG TD SCH (08:25)
[2018-11-21] MEDS: methylPREDNISolone SODIUM SUC 40 MG/ML VIAL IV SCH ×2 (08:25→21:04)
[2018-11-21] MEDS: RALOXIFENE HCL 60 MG PO SCH (08:26)
[2018-11-21] MEDS: METOPROLOL TARTRATE 25 MG TAB PO SCH ×2 (08:26→20:58)
[2018-11-21] MEDS: CALCIUM CARBONATE (ANTACID) 500 MG CHEWABLE TAB PO SCH ×2 (08:26→11:15)
[2018-11-21] MEDS: ASPIRIN (CHEWABLE) 81 MG TAB PO SCH (08:26)
[2018-11-21] MEDS: REMOVE OLD PATCH TOP SCH (08:33)
[2018-11-21] MEDS: ENOXAPARIN SODIUM 40 MG/0.4 ML SYG SUBCU SCH (13:25)
[2018-11-21] MEDS: levoFLOXacin 750MG IV 750 MG in PREMIX BAG 1 BAG IVPB SCH (13:26)
--- NOTE | 2018-11-21 20:01 | PN ---
DATE: 11/21/18 SUPERVISING PHYSICIAN: Ryan Davis M.D. SUBJECTIVE: The patient has been able to walk the halls today. She feels a little weak. Still a little bit short of breath but says she is feeling better compared to admission. OBJECTIVE: VITAL SIGNS: Temperature 97.5, pulse 88, blood pressure 136/82, respirations 14, satting 97% on nasal cannula at 2 liters at rest. Weight 60.2 kg. CHEST: Lung sounds are diminished throughout with some inspiratory and expiratory wheezing. HEART: Regular rate and rhythm. ABDOMEN: Soft, non- tender. Positive bowel sounds. EXTREMITIES: Without any edema. LABORATORY: No additional laboratory available for review. ASSESSMENT: 1. Chronic obstructive pulmonary disease exacerbation. The patient requires continued ongoing aggressive pulmonary hygiene and corticosteroid. 2. Hypertension. 3. Continuous nicotine dependency 4. History of coronary artery disease with no evidence of acute complications. 5. Gastroesophageal reflux disease. PLAN: The patient has continued improvement but will need at least another 24 hours of IV corticosteroids. Anticipate discharging tomorrow. She has been ambulating. Will continue with aggressive pulmonary hygiene and encourage ambulation and further assessment for oxygenation needs. She is again encouraged to stop smoking. Until we can transition her to outpatient management will continue to monitor and treat as needed. [facility][id number] [facility]
[2018-11-21] MEDS: ATORVASTATIN 20 MG TAB PO SCH (20:57)
[2018-11-21] MEDS: FENOFIBRIC ACID 135 MG CAP PO SCH (20:58)
[2018-11-21] MEDS: CLOPIDOGREL 75 MG TAB PO SCH (20:59)
[2018-11-21] MEDS: SODIUM CHLORIDE 0.9% (FLUSH) 10 ML SYG IV SCH (21:00)
[2018-11-22] MEDS: IPRATROPIUM/ALBUTEROL 3 ML VIAL INH SCH ×3 (00:11→07:55)
[2018-11-22] MEDS: PANTOPRAZOLE SODIUM TAB 40 MG PO SCH (05:55)
[2018-11-22] MEDS: FLUTICASONE UMECLIDINIUM VILAN IN SCH (07:56)
[2018-11-22] MEDS: DULoxetine HCL 30 MG CAP PO SCH (08:37)
[2018-11-22] MEDS: METOPROLOL TARTRATE 25 MG TAB PO SCH (08:38)
[2018-11-22] MEDS: CALCIUM CARBONATE (ANTACID) 500 MG CHEWABLE TAB PO SCH (08:38)
[2018-11-22] MEDS: NICOTINE PATCH 14 MG TD SCH (08:39)
[2018-11-22] MEDS: RALOXIFENE HCL 60 MG PO SCH (08:39)
[2018-11-22] MEDS: ASPIRIN (CHEWABLE) 81 MG TAB PO SCH (08:39)
[2018-11-22] MEDS: REMOVE OLD PATCH TOP SCH (08:46)
[2018-11-22] MEDS: SODIUM CHLORIDE 0.9% (FLUSH) 10 ML SYG IV SCH (08:46)
[2018-11-22] MEDS ORDERED: predniSONE 20 MG TAB PO SCH (09:00)
[2018-11-22 10:03] VITALS: BP 123/75; TEMP 98.5; O2SAT 96
--- NOTE | 2018-12-03 10:58 | DS ---
SUPERVISING PHYSICIAN: Ryan Davis MD ADMISSION DIAGNOSIS: 1. Chronic obstructive pulmonary disease exacerbation. 2. Hypertension. 3. Continuous nicotine dependency 4. History of coronary artery disease without evidence of any acute complications secondary to this. 5. Gastroesophageal reflux disease. DISCHARGE DIAGNOSIS: 1. Chronic obstructive pulmonary disease exacerbation. The patient requires continued ongoing aggressive pulmonary hygiene and corticosteroid. The patient is showing clinical improvement. 2. Hypertension, stable. 3. Continuous nicotine dependency, continued to encourage to stop smoking. 4. History of coronary artery disease with no evidence of acute complications. 5. Gastroesophageal reflux disease. REASON FOR HOSPITALIZATION: This is a 78 year-old female who presented to her primary care physician's office for complaints of a cough which is productive with whitish sputum, fever and shortness of breath with wheezing. Apparently, this started yesterday. She does have a history of chronic obstructive pulmonary disease and continues to smoke, although this morning she states that when she woke up she told herself she was not going to smoke anymore. She went to her primary care physician's office where they did a workup which included a chest x-ray and labs. The CBC was unremarkable. Chest x-ray did not show any acute cardiopulmonary findings, however, due to her shortness of breath she was referred for admission for chronic obstructive pulmonary disease exacerbation. On examination, the patient is alert. She is coughing and unable to complete a sentence without coughing but other than that she does not appear to be in any significant distress. LABORATORY: White count on admission was 3,800, hemoglobin 13.7, hematocrit 42.1, platelet count 131,000, differential without a left shift. Chemistries showed normal electrolytes. BUN 12, creatinine 0.96. HOSPITAL COURSE: Ms. Mortnesen was admitted as noted above for exacerbation of chronic obstructive pulmonary disease. She was started on aggressive management with corticosteroid, aggressive pulmonary hygiene and breathing treatments. She was encouraged to stop smoking. She showed good response to clinical treatment as well as initiation of antibiotics to include Levaquin and was transitioned to p.o. prednisone. On day of discharge, she was felt clinically stable enough to be discharged to continue with outpatient management. PLAN: Ms. Mortensen was discharged on 11/22/[address] Santiago on 11/27/18 at 1400. She was to resume her home medications as instructed and told to return to the hospital should she have any concerning symptoms. Diet was to resume usual diet. Activity to increase as tolerated, wear oxygen at night at least if not 24/7. MEDICATIONS AT DISCHARGE: 1. Levaquin 750 mg, #5, no refills. 2. Prednisone tapering regimen, 10 mg tablet to take as directed, #30. CONDITION AT DISCHARGE: Stable and improving. DISPOSITION: The patient was discharged to care of family members. [id number]
== END 2018-11-22 11:13 | disposition home or self-care (01) | DRG 192 ==
LOC: MS 12:10
PROVIDERS: ADMIT Nurse Practitioner; ATTEND Nurse Practitioner Family
DX: J44.1 Chronic obstructive pulmonary disease with (acute) exacerbation (principal); I10 Essential (primary) hypertension; I25.10 Atherosclerotic heart disease of native coronary artery without angina pectoris; K21.9 Gastro-esophageal reflux disease without esophagitis; E78.5 Hyperlipidemia, unspecified; F17.210 Nicotine dependence, cigarettes, uncomplicated; Z86.73 Personal history of transient ischemic attack (TIA), and cerebral infarction without residual deficits; Z95.1 Presence of aortocoronary bypass graft; Z79.82 Long term (current) use of aspirin; Z79.02 Long term (current) use of antithrombotics/antiplatelets; Z79.899 Other long term (current) drug therapy

== ENCOUNTER → 2018-11-27 | Outpatient (CLI) | payer MEDICARE | LOC: GMAE 10:20 | PROVIDERS: ATTEND Family Medicine | DX: Z79.899 Other long term (current) drug therapy (principal) ==

== ENCOUNTER → 2018-11-30 | Outpatient (CLI) | payer MEDICARE, OTHER ==
[~2018-11-30] MED LIST: IPRATROPIUM/ALBUTEROL 3 ML VIAL NEB ONE
== END ==
LOC: RESP 13:48
PROVIDERS: ATTEND Family Medicine
DX: J44.0 Chronic obstructive pulmonary disease with (acute) lower respiratory infection (principal)
CPT/HCPCS: 94060; J7620

== ENCOUNTER → 2019-05-21 | Outpatient (CLI) | payer MEDICARE, OTHER ==
--- NOTE | 2019-05-22 17:14 | MAM ---
EXAM DESCRIPTION: 3D Screening BILATERAL : Digital Mammography. CLINICAL HISTORY: 78 years Female ANNUAL SCREENING . No complaints. No personal or family history of breast cancer. Menarche age 15. Childbirth. Postmenopausal. No HRT. Lifetime risk of developing breast cancer (Tyrer-Cuzick model)(%): 2.2 COMPARISON: Bilateral screening digital breast tomosynthesis 01/24/2018. 2-D digital screening bilateral mammography 12/13/2016. TECHNIQUE: Bilateral CC and MLO projection full-field images, digital tomosynthesis mammographic technique. Bilateral digital 2-D full-field MLO images. CAD not available for tomosynthesis or 2-D images. FINDINGS: The breast parenchymal density pattern is: Scattered areas of fibroglandular density. No skin thickening or nipple retraction. Bilateral lymph nodes. Bilateral calcifications. Bilateral solitary coarse microcalcifications and small microcalcifications. No new focal, stellate mass or density, focal asymmetry , and no suspicious microcalcifications bilaterally. Stable mammograms compared to prior study. Taking into account, differences in mammographic technique. IMPRESSION: Benign exam. BIRAD CATEGORY: 2 BENIGN FINDINGS. RECOMMENDATIONS: FOLLOW UP: Routine digital bilateral mammographic screening, one year interval from May 2019. Written communication explaining the IMPRESSION and follow-up, will be mailed to the patient and referring health care provider. According to the [employer], yearly mammograms are recommended starting at age 40 and continuing as long as a woman is in good health. Any breast change noted on a breast self-exam should be reported promptly to the patient's healthcare provider. Breast MRI is recommended for women with an approximately 20-25% or greater lifetime risk of breast cancer, including women with a strong family history of breast or ovarian cancer and women who have been treated for Hodgkin's disease. A negative mammographic report should not delay tissue diagnosis in patients with significant clinical history or physical findings. Extremely dense breast tissue limits the sensitivity of digital mammography. Electronically signed by: Fred Aragon MD 05/22/2019 5:12 PM CDT
== END ==
LOC: MAMMO 11:30
PROVIDERS: ATTEND Family Medicine
DX: Z12.31 Encounter for screening mammogram for malignant neoplasm of breast (principal)

== ENCOUNTER 2019-10-08 18:09 | Emergency (ER) | payer MEDICARE, OTHER ==
[2019-10-08] MEDS ORDERED: SODIUM CHLORIDE 0.9% (FLUSH) 10 ML SYG IV PRN (18:27)
[2019-10-08] MEDS ORDERED: SODIUM CHLORIDE 0.9% 1000ML 1,000 ML IVS PRN (18:27)
[2019-10-08] MEDS ORDERED: IPRATROPIUM/ALBUTEROL 3 ML VIAL INH ONE (18:27)
[2019-10-08] MEDS ORDERED: ALBUTEROL SULFATE 2.5 MG/3 ML VIAL NEB ONE ×2 (18:27→19:20)
--- NOTE | 2019-10-08 18:44 | ED.PDOC ---
History of Present Illness - General Chief Complaint: Respiratory Problem Stated Complaint: shortness of breath Time Seen by Provider: 10/08/19 18:27 Source: patient, RN notes reviewed, Vital Signs reviewed, family - Daughters Exam Limitations: no limitations - History of Present Illness Initial Comments: Patient is a 78-year-old white female who presents with 3 days of worsening shortness of breath. Patient has a history of COPD. She continues to smoke cigarettes. She smokes approximately 1 pack/day. Approximately 3 days ago she had increasing shortness of breath and dyspnea. It got bad enough yesterday that she used a DuoNeb for the first time in 6 months. Additionally, she took a second DuoNeb this morning. Patient attributes this shortness of breath to the change in weather. Additionally she was out shopping today and became very short of breath while walking as well as having the wind blowing her face. Patient states that she is coughing more than usual and it is productive for thick whitish-yellowish sputum. Patient states that she has been very cold and is having to wear lots of close and she thinks she has been having fever. She did not measure her temperature. Exertion makes the shortness of breath worse. It gets better with rest but does not completely go away. Patient is on oxygen at home at night for sleeping. Timing/Duration: other - 3 days Severity: moderate Activities at Onset: none Possible Cause: occasional episodes Improving Factors: rest Worsening Factors: movement Associated Symptoms: cough, fever - Subjective Respiratory Risk Factors: other - Patient continues to smoke. Allergies/Adverse Reactions: Allergies Levofloxacin [From Levaquin] Allergy (Verified 11/22/18 18:25) Home Medications: Ambulatory Orders Clopidogrel Bisulfate [Plavix] 75 mg PO BEDTIME 11/01/15 Metoprolol Tartrate 12.5 mg PO BID 11/01/15 Rosuvastatin Calcium [Crestor] 40 mg PO BEDTIME 11/01/15 Aspirin [Aspirin Adult Low Dose] 81 mg PO DAILY 02/19/18 Mubnxpeybph-Kelqrauaulxn-Iodeg [Trelegy Ellipta 100-62.5-25 Mcg/INH] 1 aer IN RTDAILY@0800 02/19/18 Raloxifene HCl [Raloxifene Hydrochloride] 60 mg PO DAILY 02/19/18 Fenofibrate 150 mg PO BEDTIME 09/19/18 Albuterol Sulfate Nebs [Proventil Nebs] 2.5 mg INH Q4HR #60 vial 05/11/18 Citalopram Hydrobromide [Citalopram] 20 mg PO DAILY 10/08/19 Furosemide 20 mg PO DAILY 10/08/19 Methylprednisolone [Medrol Dose Brent] 4 mg PO DAILY 6 Days #21 tab 10/08/19 Review of Systems - Review of Systems Constitutional: States: see HPI, chills, fever, malaise. Denies: diaphoresis EENTM: States: no symptoms reported. Denies: blurred vision, tearing, double vision Respiratory: States: see HPI, cough, short of breath. Denies: orthopnea, stridor, wheezing Cardiology: States: no symptoms reported. Denies: chest pain, palpitations, syncope Gastrointestinal/Abdominal: States: no symptoms reported. Denies: abdominal pain, nausea, vomiting Genitourinary: States: no symptoms reported. Denies: frequency, hematuria Musculoskeletal: States: no symptoms reported. Denies: back pain, joint swelling, muscle pain Skin: States: no symptoms reported. Denies: change in color, rash Neurological: States: no symptoms reported. Denies: numbness, paresthesia, weakness Endocrine: States: no symptoms reported. Denies: intolerance to cold, intolerance to heat, increased thirst, increased urine Hematologic/Lymphatic: States: no symptoms reported. Denies: easy bleeding, easy bruising All other Systems: Reviewed and Negative Past Medical History (General) - Patient Medical History Hx Seizures: No Hx Stroke: No Hx Asthma: No Hx of COPD: Yes Hx Cardiac Disorders: Yes Hx Congestive Heart Failure: No Hx Pacemaker: No Hx Hypertension: No Hx Diabetes: No Hx MRSA: No Surgical History: appendectomy, cholecystectomy, coronary bypass surgery, Hysterectomy - Vaccination History Hx Influenza Vaccination: Yes Hx Pneumococcal Vaccination: Yes - Social History Hx Tobacco Use: Yes Hx Alcohol Use: No Hx Substance Use: No Hx Physical Abuse: No Hx Emotional Abuse: No Family Medical History - Family History Mother Family History: Unknown Living Status: Hx Family Asthma: No Hx Family Congestive Heart Failure: No Hx Family Hypertension: No Hx Family Stroke: No Hx Cardiac Disease: No Hx Family Diabetes: Yes Hx Family Cancer: No Physical Exam - Physical Exam General Appearance: Alert, Anxious, Restless, Well Developed, Well Groomed, Well Hydrated, Well Nourished Eyes, Ears, Nose, Throat Exam: PERRL/EOMI, normal ENT inspection, pharynx normal Neck: non-tender, full range of motion, supple, normal inspection Respiratory: chest non-tender, respiratory distress - Moderate, decreased breath sounds - In the bases bilaterally, rhonchi - Diffusely throughout, other - Patient speaking in 4-5 word sentences. Cardiovascular/Chest: normal peripheral pulses, regular rate, rhythm, no edema, no gallop, no JVD, no murmur Peripheral Pulses: radial,right: 2+, radial,left: 2+ Gastrointestinal/Abdominal: normal bowel sounds, non tender, soft, no organomegaly, no pulsatile mass Extremity: normal range of motion, non-tender, normal inspection, no pedal edema, no calf tenderness Neurologic: color paste mixer II-XII nml as tested, no motor/sensory deficits, alert, normal mood/affect, oriented x 3 Skin Exam: normal color, warm/dry, cyanosis Lymphatic: no adenopathy Progress - Progress Progress: Differential diagnosis: Pneumonia, COPD exacerbation, influenza, viral URI among others. 10/08/19 21:16 Patient is markedly better. She is able to sit up and not need oxygen. She is speaking in full sentences and states that she is feeling 100% better. Patient is ready for discharge home. Earlier in the visit her daughters were concerned that she was not well enough to go home and wanted me to admit the patient to the hospital. But along with patient's improvement, lab work and ABG I believe patient is significantly improved and will go home on a course of steroids. Additionally, patient understands that she needs to be taken a DuoNeb 4 times a day. Patient's daughters are now pleased that she is doing so well and they all agree with plan for discharge home. Benson Earl M.D. #[id number] - Results/Orders Results/Orders: EKG performed on 08 October 2019 at 1829 hrs.: Normal sinus rhythm at 76 bpm, possible left atrial enlargement, left axis deviation, left bundle branch block, no Sgarbossa's criteria, abnormal EKG. No prior EKG available for comparison. EXAM DESCRIPTION: Chest,2 Views CLINICAL HISTORY: 78 years Female productive cough and sob. COMPARISON: 11/20/2018 FINDINGS: Cardiac enlargement. Sternotomy wires. Vascular calcification. Pulmonary hyperinflation related to COPD. No acute consolidation or evidence of edema. Multilevel degenerative change in the spine with mild chronic anterior wedging. IMPRESSION: No acute process Cardiac enlargement and COPD Electronically signed by: Svetlana Orellana MD 10/08/2019 7:34 PM 10/08/19 18:27 Telemetry .ONCE Sodium Chloride 0.9% (Flush) [Saline Flush Syringe] 10 ml IV PRN PRN Sodium Chloride 0.9% 1000ML [Ns 1000 ml] 1,000 ml IVS .QD 10/08/19 18:30 EKG STAT 10/08/19 18:40 BLOOD CULTURE Stat 10/09/19 09:00 Pulse Ox Daily Laboratory Results - last 24 hr 10/08/19 10/08/19 18:40 18:40 WBC 6.7 RBC 4.91 Hgb 11.8 L Hct 37.2 MCV 75.6 L MCH 24.1 L MCHC 31.9 L RDW 15.9 H Plt Count 163 MPV 9.9 Absolute Neuts (auto) 4.20 Absolute Lymphs (auto) 1.40 Absolute Monos (auto) 0.90 H Absolute Eos (auto) 0.10 Absolute Basos (auto) 0.00 Neutrophils % 63.4 Lymphocytes % 21.3 Monocytes % 14.0 H Eosinophils % 0.8 L Basophils % 0.5 Normal RBC Morphology Stain quality accept Sodium 137 Potassium 3.7 Chloride 101 Carbon Dioxide 27 Anion Gap 12.7 BUN 21 H Creatinine 0.88 BUN/Creatinine Ratio 23.9 H Random Glucose 93 Serum Osmolality 276.5 Calcium 9.2 Total Bilirubin 0.4 AST 20 ALT 10 Alkaline Phosphatase 45 Serum Total Protein 6.9 Albumin 3.9 Globulin 3.0 Albumin/Globulin Ratio 1.3 10/08/19 18:27 Telemetry .ONCE Sodium Chloride 0.9% (Flush) [Saline Flush Syringe] 10 ml IV PRN PRN Sodium Chloride 0.9% 1000ML [Ns 1000 ml] 1,000 ml IVS .QD 10/08/19 18:30 EKG STAT 10/08/19 18:40 BLOOD CULTURE Stat 10/08/19 19:56 ABG [Arterial Blood Gas] Stat 10/09/19 09:00 Pulse Ox Daily Laboratory Results - last 24 hr 10/08/19 10/08/19 18:40 18:40 WBC 6.7 RBC 4.91 Hgb 11.8 L Hct 37.2 MCV 75.6 L MCH 24.1 L MCHC 31.9 L RDW 15.9 H Plt Count 163 MPV 9.9 Absolute Neuts (auto) 4.20 Absolute Lymphs (auto) 1.40 Absolute Monos (auto) 0.90 H Absolute Eos (auto) 0.10 Absolute Basos (auto) 0.00 Neutrophils % 63.4 Lymphocytes % 21.3 Monocytes % 14.0 H Eosinophils % 0.8 L Basophils % 0.5 Normal RBC Morphology Stain quality accept Sodium 137 Potassium 3.7 Chloride 101 Carbon Dioxide 27 Anion Gap 12.7 BUN 21 H Creatinine 0.88 BUN/Creatinine Ratio 23.9 H Random Glucose 93 Serum Osmolality 276.5 Calcium 9.2 Total Bilirubin 0.4 AST 20 ALT 10 Alkaline Phosphatase 45 Serum Total Protein 6.9 Albumin 3.9 Globulin 3.0 Albumin/Globulin Ratio 1.3 ABG does show some hypoxia and hypercapnia, but her base deficit is only -0.4 and I believe that her ABG represents a static state for her COPD. She does not appear to be any more hypoxic than usual. Departure - Departure Clinical Impression: Acute exacerbation of chronic obstructive pulmonary disease (COPD), Hypoxemia Time of Disposition: 21:19 Disposition: Discharge to Home or Self Care Condition: Good Departure Forms: ED Discharge - Pt. Copy, Patient Portal Self Enrollment Instructions: DI for Hypoxia, Exacerbation of COPD (DC) Diet: resume usual diet Activity: increase activity as tolerated Referrals: SOLANGE TITUS MD [Primary Care Provider] - 1-5 Days Prescriptions: Methylprednisolone [Medrol Dose Brent] 4 mg PO DAILY 6 Days #21 tab Home Medications: Ambulatory Orders Clopidogrel Bisulfate [Plavix] 75 mg PO BEDTIME 11/01/15 Metoprolol Tartrate 12.5 mg PO BID 11/01/15 Rosuvastatin Calcium [Crestor] 40 mg PO BEDTIME 11/01/15 Aspirin [Aspirin Adult Low Dose] 81 mg PO DAILY 02/19/18 Jjxutdjnvay-Onqibmmsvwuw-Pdcym [Trelegy Ellipta 100-62.5-25 Mcg/INH] 1 aer IN RTDAILY@0800 02/19/18 Raloxifene HCl [Raloxifene Hydrochloride] 60 mg PO DAILY 02/19/18 Fenofibrate 150 mg PO BEDTIME 05/09/18 Albuterol Sulfate Nebs [Proventil Nebs] 2.5 mg INH Q4HR #60 vial 05/11/18 Citalopram Hydrobromide [Citalopram] 20 mg PO DAILY 10/08/19 Furosemide 20 mg PO DAILY 10/08/19 Methylprednisolone [Medrol Dose Brent] 4 mg PO DAILY 6 Days #21 tab 10/08/19 Additional Instructions: Remember to take a DuoNeb every 6 hours.
--- NOTE | 2019-10-08 19:36 | RAD ---
EXAM DESCRIPTION: Chest,2 Views CLINICAL HISTORY: 78 years Female productive cough and sob. COMPARISON: 11/20/2018 FINDINGS: Cardiac enlargement. Sternotomy wires. Vascular calcification. Pulmonary hyperinflation related to COPD. No acute consolidation or evidence of edema. Multilevel degenerative change in the spine with mild chronic anterior wedging. IMPRESSION: No acute process Cardiac enlargement and COPD Electronically signed by: Svetlana Orellana MD 10/08/2019 7:34 PM BUSINESS BANKING SALES ASSISTANT
[2019-10-08] MEDS ORDERED: LEVALBUTEROL NEBS 1.25 MG/3 ML VIAL NEB ONE (19:40)
[2019-10-08] MEDS ORDERED: methylPREDNISolone SODIUM SUC 125 MG/2 ML VIAL IV ONE (19:41)
[2019-10-08 20:24] VITALS: TEMP 98.9
[2019-10-08 21:04] VITALS: BP 128/71
[2019-10-08] MEDS: LEVALBUTEROL NEBS 1.25 MG/3 ML VIAL NEB ONE (21:10)
[2019-10-08 21:15] VITALS: O2SAT 2
== END 2019-10-08 21:28 | disposition home or self-care (01) ==
LOC: ER 18:09
DX: J44.1 Chronic obstructive pulmonary disease with (acute) exacerbation (principal); R09.02 Hypoxemia; F17.210 Nicotine dependence, cigarettes, uncomplicated; I51.9 Heart disease, unspecified; Z99.81 Dependence on supplemental oxygen; Z95.1 Presence of aortocoronary bypass graft; Z79.82 Long term (current) use of aspirin; Z79.899 Other long term (current) drug therapy; Z88.1 Allergy status to other antibiotic agents
CPT/HCPCS: 36415; 36600; 71046; 80053; 82803; 82805; 85025; 87040; 93005; 94640; 94760; J2930; J7030; J7611; J7614; J7620

== ENCOUNTER → 2019-12-18 | Outpatient (CLI) | payer MEDICARE, OTHER | LOC: GMAE 11:31 | PROVIDERS: ATTEND Family Medicine | DX: Z79.899 Other long term (current) drug therapy (principal) ==

== ENCOUNTER 2020-03-11 14:32 | Observation (INO) | payer MEDICARE, OTHER ==
[2020-03-12] MEDS ORDERED: SODIUM CHLORIDE 0.9% (FLUSH) 10 ML SYG IV PRN (17:23)
[2020-03-12] MEDS ORDERED: IV SET AND CAP CHANGE INJ INJ SCH (17:30)
[2020-03-12] MEDS ORDERED: ACETAMINOPHEN 325 MG TAB PO PRN (17:33)
[2020-03-12] MEDS ORDERED: LEVALBUTEROL NEBS 1.25 MG/3 ML VIAL INH PRN (17:33)
[2020-03-12] MEDS ORDERED: cefTRIAXone SODIUM 1 GM in SODIUM CHL 0.9% 50ML MIN-BAG+ 50 ML IVPB SCH (18:00)
[2020-03-12] MEDS ORDERED: cefTRIAXone SODIUM 1 GM VIAL ONE (18:40)
[2020-03-12] MEDS ORDERED: SODIUM CHL 0.9% 50ML MIN-BAG+ 50 ML IVPB ONE (18:41)
[2020-03-12] MEDS ORDERED: NICOTINE PATCH 14 MG TD ONE (19:29)
[2020-03-12] MEDS: NICOTINE PATCH 14 MG TD SCH (19:30)
[2020-03-12] MEDS: METOPROLOL TARTRATE 25 MG TAB PO SCH (19:59)
[2020-03-12] MEDS ORDERED: NON-FORMULARY MEDICATION 1 EA MIS (Rosuvastatin Calcium [Crestor] 40 MG) PO SCH (21:00)
[2020-03-13] MEDS ORDERED: PANTOPRAZOLE SODIUM IV 40 MG VIAL IV SCH (06:30)
[2020-03-13] MEDS ORDERED: NON-FORMULARY MEDICATION 1 EA MIS (Fluticasone-Umeclidinium-Vilan [Trelegy Ellipta 100-62. INH SCH (07:00)
--- NOTE | 2020-03-13 07:40 | RAD ---
: 1940. TECHNIQUE: PA and lateral views of the chest. Comparison: None. Clinical history: copd. Heart size: Normal. Sternotomy. Calcified aorta. No vascular congestion Lungs: No acute consolidation. Air trapping is noted consistent with COPD Pleura: No pleural effusion. No pneumothorax. Mediastinum and janna: Unremarkable. Skeletal: Unremarkable. IMPRESSION: 1. No acute findings in the chest. Electronically signed by: Marc Combs MD 03/13/2020 7:38 AM CDT
[2020-03-13] MEDS ORDERED: CLOPIDOGREL 75 MG TAB PO SCH (09:00)
[2020-03-13] MEDS ORDERED: cefTRIAXone SODIUM 1 GM in SODIUM CHL 0.9% 50ML MIN-BAG+ 50 ML IVPB SCH (09:00)
[2020-03-13] MEDS ORDERED: NON-FORMULARY MEDICATION 1 EA MIS (Dexlansoprazole [Dexilant] 60 MG) PO SCH (09:00)
[2020-03-13] MEDS ORDERED: NON-FORMULARY MEDICATION 1 EA MIS (Furosemide [Furosemide] 20 MG) PO SCH (09:00)
[2020-03-13] MEDS ORDERED: CITALOPRAM HBR 20 MG TAB PO SCH (09:00)
[2020-03-13] MEDS ORDERED: ASPIRIN (CHEWABLE) 81 MG TAB PO SCH (09:00)
[2020-03-13] MEDS ORDERED: NON-FORMULARY MEDICATION 1 EA MIS (Raloxifene Hcl [Raloxifene Hydrochloride] 60 MG) PO SCH (09:00)
[2020-03-13] MEDS ORDERED: FUROSEMIDE INJ 100 MG/10 ML VIAL IV SCH (09:00)
[2020-03-13 10:11] VITALS: BP 128/71; TEMP 97.8; O2SAT 96
[2020-03-13] MEDS: METOPROLOL TARTRATE 25 MG TAB PO SCH (10:12)
[2020-03-13] MEDS: NICOTINE PATCH 14 MG TD SCH (10:16)
--- NOTE | 2020-03-13 17:10 | SSS ---
SUPERVISING PHYSICIAN: Sandeep Landa M.D. DISCHARGE DIAGNOSES: 1. Hypotension with a positive tilt. 2. Urinary tract infection. 3. Chronic obstructive pulmonary disease without signs or symptoms of exacerbation in a chronic smoker. 4. Coronary artery disease. HISTORY OF PRESENT ILLNESS: This is a 79 year-old female patient that came to the Emergency Room on the day prior to her admission due to atypical neurologic symptoms in her legs. She felt like her legs were moving without her. When she was in the Emergency Room she actually had some orthostatic hypotension. When she was lying down it was 99/60 and when she stood up it was 62/47. She was given some fluids and some lab work was done. She was found to have a urinary tract infection, but her symptoms did not improve after fluids. She was to be transferred to another hospital but she refused and went home. On the morning of admission she talked to her primary care physician, Dr. Philippe Santiago/ She again showed some low blood pressures. She is on Metoprolol but had not taken her morning medication. She also has been a smoker for over 60 years and continues to do so. She was not treated for the urinary tract infection in the Emergency Room and today due to her continued symptoms as well as low blood pressure, she was directly admitted to the hospital for further monitoring as well as testing. PAST MEDICAL HISTORY: 1. Carotid artery stenosis. 2. Coronary artery disease. 3. Chronic obstructive pulmonary disease. 4. Hyperlipidemia. 5. Gastroesophageal reflux disease. PAST SURGICAL HISTORY: 1. Coronary artery bypass graft. 2. section times 1. 3. Coronary artery stents. OUTPATIENT MEDICATIONS: 1. Crestor. 2. Plavix. 3. Metoprolol tartrate. 4. Aspirin. 5. Raloxifene. 6. Fenofibrate. 7. Furosemide. 8. Citalopram. 9. Dexilant. 10. Trelegy ellipta. ALLERGIES: NO KNOWN DRUG ALLERGIES. SOCIAL HISTORY: She is retired. She lives in [place]. She smokes about 1 pack of cigarettes per day and has for about 60 years. She denies any ETOH or illicit drug use. REVIEW OF SYSTEMS: GENERAL: Negative for fever, chills or weight changes. HEENT: Negative for sinus symptoms, ear pain, vision changes or sore throat. RESPIRATORY: Positive for chronic cough as well as chronic shortness of breath. Negative for wheezing. CARDIAC: Negative for chest pain, palpitations or tachycardia. GASTROINTESTINAL: Negative for nausea, vomiting, diarrhea or constipation. GENITOURINARY: Negative for hematuria, dysuria or polyuria. MUSCULOSKELETAL: As per History of Present Illness. INTEGUMENT: Negative for lesions or rashes. NEUROLOGIC: As per History of Present Illness. Negative for headaches, seizures or weakness. PHYSICAL EXAMINATION: VITAL SIGNS: Temperature 97.8, heart rate 65, blood pressure 128/71, respiratory rate 16, O2 saturation 96% on room air. This morning she had a negative tilt test. GENERAL: This is a 79 year-old female patient who is sitting on the side of her bed. She is in no acute distress. HEENT: Normocephalic, atraumatic. Pupils are equal and reactive. Oropharynx is clear. NECK: Supple without mass. RESPIRATORY: Essentially clear to auscultation bilaterally. CHEST: There is equal rise and fall of the chest with inspiration and expiration. CARDIOVASCULAR: Regular rate and rhythm. GASTROINTESTINAL: Abdomen is soft, nondistended, nontender. Bowel sounds are positive. SKIN: Warm and dry. NEUROLOGIC: She is awake, alert and oriented times three. Cranial nerves II-XII are grossly intact as tested. HOSPITAL COURSE: The patient was placed in observation in the hospital. Her vital signs were monitored closely and she had scheduled vital signs both lying, sitting and standing. After admission, her lying blood pressure was 128/74 with a heart rate of 64. Her sitting blood pressure was 109/72 and her heart rate was 72. Her standing blood pressure was 93/61 with a 72 heart rate. This morning her tilt was negative. She was given judicious fluids overnight and she was started on Rocephin for her urinary tract infection. She had an echocardiogram done this morning but has had no further problems, dizziness or leg pain. She will be discharged home today in stable condition. FOLLOWUP LABORATORY: WBC of 5.5 with hemoglobin 11.7, hematocrit 36.5. Electrolytes are basically within normal limits. Liver enzymes are within normal limits. Preliminary blood cultures show no growth. Urine culture is pending. Chest x-ray shows no acute findings of the chest. Echocardiogram shows: 1. Left ventricular ejection fraction estimated by 2D at 60 to 65%. 2. There is moderate concentric left ventricular hypertrophy. 3. 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 4. Grade 1 diastolic dysfunction consistent with impaired relaxation and normal filling pressures. 5. The aortic valve is sclerotic but opens well. DISCHARGE PLAN: The patient will be discharged home in stable condition. She is to resume her previous medications. In addition to her previous medications, she will go home on Cefdinir. She has a followup appointment with Dr. Santiago on Monday at 9:45 AM. At that time her echocardiogram can be reviewed as well as a followup on her urine culture. If she continues to have some symptoms, she may need 24 hour cardiac monitoring. She is to resume her previous diet and activity. She is to return to the hospital or followup with Dr. Santiago for any problems or complications. DISCHARGE MEDICATIONS: 1. Crestor. 2. Plavix. 3. Metoprolol tartrate. 4. Aspirin. 5. Raloxifene. 6. Fenofibrate. 7. Furosemide. 8. Citalopram. 9. Dexilant. 10. Trelegy ellipta. 11. Cefdinir. #[id number] [facility]
== END 2020-03-13 13:35 | disposition home or self-care (01) ==
LOC: MS 14:32 → UNDOADMOB 03-12 16:40 → INTOOBSV 03-12 16:40 → UNDODISOB 03-13 13:35
PROVIDERS: ADMIT Nurse Practitioner Acute Care; ATTEND Nurse Practitioner Acute Care
DX: I95.1 Orthostatic hypotension (principal); N39.0 Urinary tract infection, site not specified; J44.9 Chronic obstructive pulmonary disease, unspecified; F17.210 Nicotine dependence, cigarettes, uncomplicated; I25.10 Atherosclerotic heart disease of native coronary artery without angina pectoris; I65.29 Occlusion and stenosis of unspecified carotid artery; E78.5 Hyperlipidemia, unspecified; K21.9 Gastro-esophageal reflux disease without esophagitis; I70.0 Atherosclerosis of aorta; Z11.59 Encounter for screening for other viral diseases; Z79.51 Long term (current) use of inhaled steroids; Z79.02 Long term (current) use of antithrombotics/antiplatelets; Z79.82 Long term (current) use of aspirin; Z79.899 Other long term (current) drug therapy; Z95.1 Presence of aortocoronary bypass graft; Z95.5 Presence of coronary angioplasty implant and graft
CPT/HCPCS: J0696 ×2; J7040; J1940; J7050 ×2; 82553; 80053 ×2; 87086; 82948; 36415 ×3; 87077; 87186; 81001; 85025 ×2; 82550; 87040 ×2; 85730; 85610; 84484; 83605; 71045; 71046; 70450; 94760 ×3; 99406; 93306; 93005; G0378; 87635

== ENCOUNTER → 2020-03-23 | Outpatient (CLI) | payer MEDICARE, OTHER ==
--- NOTE | 2020-03-23 15:47 | US ---
EXAM DESCRIPTION: Venous,Lower Extremity LT: ULTRASOUND. CLINICAL HISTORY: PAIN IN LEFT LOWER LEG COMPARISON: None Available. TECHNIQUE: Mccray-scale and doppler sonographic evaluation of the deep venous system of the left lower extremity. FINDINGS: Doppler evaluation shows normal color flow and normal phasicity and augmentation of the left common femoral vein, left femoral vein, popliteal vein, and left greater saphenous vein, junction with the CFV. Also normal color flow and normal phasicity and augmentation of the peroneal, and posterior tibial vein. The left lower extremity deep veins were completely compressible; normal occlusion with transducer pressure. Mccray-scale survey showed no echogenic thrombus within these veins. IMPRESSION: 1. Duplex ultrasound evaluation of the left lower extremity deep venous system showing no evidence of thrombosis. Electronically signed by: Fred Aragon MD 03/23/2020 3:45 PM CDT
== END ==
LOC: RAD 15:06
PROVIDERS: ATTEND Family Medicine
DX: M79.662 Pain in left lower leg (principal)

== ENCOUNTER 2020-07-05 13:38 | Emergency (ER) | payer MEDICARE, OTHER ==
[2020-07-05] MEDS ORDERED: SODIUM CHLORIDE 0.9% (FLUSH) 10 ML SYG IV PRN (14:04)
[2020-07-05] MEDS ORDERED: methylPREDNISolone SODIUM SUC 125 MG/2 ML VIAL IV ONE (14:06)
[2020-07-05] MEDS ORDERED: IPRATROPIUM/ALBUTEROL 3 ML VIAL INH ONE (14:06)
--- NOTE | 2020-07-05 14:10 | ED.PDOC ---
History of Present Illness - General Time Seen by Provider: 07/05/20 13:59 Source: patient, RN notes reviewed, Vital Signs reviewed, family Exam Limitations: no limitations - History of Present Illness Comments: Pt is a 79 yo female with PMH of COPD and CAD who presents to ED for 1 day h/o congestion, nonproductive cough and feeling short of breath. States she is on oxygen at night. She awoke at 0500 this morning with nasal congestion and cough. States she has been blowing her nose repeatedly today. Has taken her pulse ox at home and was 92%. She took one albuterol treatment with morning with some improvement. Denies fever, chills, CP, PAREDES, NVD. Allergies/Adverse Reactions: Allergies Levofloxacin [From Levaquin] Allergy (Verified 07/05/20 15:08) Home Medications: Ambulatory Orders Clopidogrel Bisulfate [Plavix] 75 mg PO DAILY 11/01/15 Metoprolol Tartrate 12.5 mg PO BID 11/01/15 Rosuvastatin Calcium [Crestor] 40 mg PO BEDTIME 11/01/15 Aspirin [Aspirin Adult Low Dose] 81 mg PO DAILY 02/19/18 Raloxifene HCl [Raloxifene Hydrochloride] 60 mg PO DAILY 02/19/18 Fenofibrate 150 mg PO BEDTIME 05/09/18 Citalopram Hydrobromide [Citalopram] 20 mg PO DAILY 10/08/19 Furosemide 20 mg PO DAILY 10/08/19 Dexlansoprazole [Dexilant] 60 mg PO DAILY 03/11/20 Qxtbsnyhfju-Vsxmssmmrrts-Lthod [Trelegy Ellipta 100-62.5-25 Mcg/INH] 1 puff INH 0700 03/12/20 Cefdinir 300 mg PO BID #16 capsule 03/13/20 Prednisone 60 mg PO DAILY 5 Days #15 tab 07/05/20 levoFLOXacin [Levaquin] 500 mg PO DAILY #7 tab 07/05/20 Review of Systems - Review of Systems Constitutional: Denies: chills, fever EENTM: States: nose congestion. Denies: throat pain, throat swelling Respiratory: States: cough, short of breath, wheezing Cardiology: Denies: chest pain, palpitations, syncope Gastrointestinal/Abdominal: Denies: abdominal pain, diarrhea, nausea Genitourinary: Denies: dysuria, frequency Musculoskeletal: Denies: back pain, neck pain Neurological: Denies: headache, numbness All other Systems: Reviewed and Negative Past Medical History (General) - Patient Medical History Hx Seizures: No Hx Stroke: No Hx Asthma: No Hx of COPD: Yes Hx Cardiac Disorders: Yes Hx Congestive Heart Failure: No Hx Pacemaker: No Hx Hypertension: No Hx Diabetes: No Hx MRSA: No - Vaccination History Hx Influenza Vaccination: Yes Hx Pneumococcal Vaccination: Yes - Social History Hx Tobacco Use: Yes Hx Alcohol Use: No Hx Substance Use: No Hx Physical Abuse: No Hx Emotional Abuse: No Family Medical History - Family History Mother Family History: Unknown Living Status: Hx Family Asthma: No Hx Family Congestive Heart Failure: No Hx Family Hypertension: No Hx Family Stroke: No Hx Cardiac Disease: No Hx Family Diabetes: Yes Hx Family Cancer: No Physical Exam - Physical Exam General Appearance: Alert, Comfortable, No apparent distress, Other - Frequent cough Neck: full range of motion, supple, trachea midline Respiratory: chest non-tender, lungs clear, other - Good air movement with bilateral expiratory wheezes. Speaks in full sentences Cardiovascular/Chest: regular rate, rhythm, no edema, no murmur Gastrointestinal/Abdominal: non tender, soft, no pulsatile mass Extremity: non-tender, normal inspection, no pedal edema Neurologic: no motor/sensory deficits, alert Skin Exam: normal color, warm/dry Progress - Progress Progress: 07/05/20 16:09 Patient presents to ED with 1 day history of cough, congestion and feeling short of breath. She has had no hypoxia or respiratory distress in the ED. I have discussed with patient and 2 daughters results. Chest x-ray and labs are reassuring. COVID-19 test was negative. Wheezes resolved after breathing treatments in ED and patient feels comfortable going home. She will continue albuterol treatments and will start short course of steroids and Levaquin and she will follow up with her PCP in 1 to 2 days for continued evaluation. Strict return precautions given. - Results/Orders Results/Orders: EKG- NSR, rate 80, wide QRS, nonspecific T wave abnormality CHEST XRAY Technique: Portable AP chest x-ray. Comparison: March 13, 2020. Clinical history: cough, SOB. Heart size: Normal. Sternotomy. Atrial clip. Apparent stent or coronary vascular calcification No vascular congestion. No pulmonary edema. Lungs: No acute consolidation. Shallower inspiration noted. Pleura: No pleural effusion. No pneumothorax. Mediastinum and janna: Unremarkable. Skeletal: Unremarkable. Support tubings: None. Impression: 1. No active disease in the chest. 07/05/20 14:04 Sodium Chloride 0.9% (Flush) [Saline Flush Syringe] 10 ml IV PRN PRN 07/05/20 14:15 EKG STAT 07/05/20 14:30 BLOOD CULTURE Stat 07/05/20 16:11 levoFLOXacin [Levaquin] 500 mg PO ONCE ONE 07/05/20 16:15 LACTIC ACID Q2H 07/05/20 18:15 LACTIC ACID Q2H 07/05/20 20:15 LACTIC ACID Q2H 07/05/20 22:15 LACTIC ACID Q2H 07/06/20 09:00 Pulse Ox Daily Laboratory Results - last 24 hr 07/05/20 07/05/20 07/05/20 14:30 14:30 14:30 WBC 7.3 RBC 4.89 Hgb 11.8 L Hct 36.6 MCV 74.9 L MCH 24.2 L MCHC 32.3 L RDW 16.0 H Plt Count 166 MPV 9.9 Absolute Neuts (auto) 5.10 Absolute Lymphs (auto) 1.30 Absolute Monos (auto) 0.70 Absolute Eos (auto) 0.10 Absolute Basos (auto) 0.10 Neutrophils % 70.0 Lymphocytes % 18.1 L Monocytes % 9.5 H Eosinophils % 1.5 Basophils % 0.9 Sodium 137 Potassium 3.7 Chloride 102 Carbon Dioxide 25 Anion Gap 13.7 BUN 18 Creatinine 0.86 BUN/Creatinine Ratio 20.9 H Random Glucose 118 H Serum Osmolality 276.8 Lactic Acid 1.5 Calcium 8.7 Total Bilirubin 0.5 AST 17 ALT 10 Alkaline Phosphatase 41 L B-Natriuretic Peptide 214.0 H* Serum Total Protein 6.5 Albumin 3.6 Globulin 2.9 Albumin/Globulin Ratio 1.2 Departure - Departure Clinical Impression: Acute exacerbation of chronic obstructive pulmonary disease (COPD) Time of Disposition: 16:06 Disposition: Discharge to Home or Self Care Condition: Good Instructions: Chronic Obstructive Pulmonary Disease (COPD) (DC) Diet: resume usual diet Activity: ambulate only with walker Referrals: SOLANGE TITUS MD [Primary Care Provider] - 1-2 Days Prescriptions: levoFLOXacin [Levaquin] 500 mg PO DAILY #7 tab Prednisone 60 mg PO DAILY 5 Days #15 tab Home Medications: Ambulatory Orders Clopidogrel Bisulfate [Plavix] 75 mg PO DAILY 11/01/15 Metoprolol Tartrate 12.5 mg PO BID 11/01/15 Rosuvastatin Calcium [Crestor] 40 mg PO BEDTIME 11/01/15 Aspirin [Aspirin Adult Low Dose] 81 mg PO DAILY 02/19/18 Raloxifene HCl [Raloxifene Hydrochloride] 60 mg PO DAILY 02/19/18 Fenofibrate 150 mg PO BEDTIME 05/09/18 Citalopram Hydrobromide [Citalopram] 20 mg PO DAILY 10/08/19 Furosemide 20 mg PO DAILY 10/08/19 Dexlansoprazole [Dexilant] 60 mg PO DAILY 03/11/20 Kxpvdqdzzft-Jdqzcgcajmov-Jirtc [Trelegy Ellipta 100-62.5-25 Mcg/INH] 1 puff INH 0700 03/12/20 Cefdinir 300 mg PO BID #16 capsule 03/13/20 Prednisone 60 mg PO DAILY 5 Days #15 tab 07/05/20 levoFLOXacin [Levaquin] 500 mg PO DAILY #7 tab 07/05/20 Additional Instructions: Continue albuterol treatments every 4 hours as needed.
--- NOTE | 2020-07-05 14:38 | RAD ---
: 1940. Technique: Portable AP chest x-ray. Comparison: March 13, 2020. Clinical history: cough, SOB. Heart size: Normal. Sternotomy. Atrial clip. Apparent stent or coronary vascular calcification No vascular congestion. No pulmonary edema. Lungs: No acute consolidation. Shallower inspiration noted. Pleura: No pleural effusion. No pneumothorax. Mediastinum and janna: Unremarkable. Skeletal: Unremarkable. Support tubings: None. Impression: 1. No active disease in the chest. Electronically signed by: Marc Combs MD 07/05/2020 2:36 PM PHILOSOPHY AND RELIGION INSTRUCTOR
[2020-07-05 15:13] VITALS: O2SAT 96
[2020-07-05] MEDS ORDERED: levoFLOXacin 500 MG TAB PO ONE (16:11)
[2020-07-05 16:25] VITALS: BP 148/78; TEMP 98.7
== END 2020-07-05 16:26 | disposition home or self-care (01) ==
LOC: ER 13:38
DX: J44.1 Chronic obstructive pulmonary disease with (acute) exacerbation (principal); I25.10 Atherosclerotic heart disease of native coronary artery without angina pectoris; Z20.828 Contact with and (suspected) exposure to other viral communicable diseases; Z87.891 Personal history of nicotine dependence; Z99.81 Dependence on supplemental oxygen; Z88.1 Allergy status to other antibiotic agents; Z79.899 Other long term (current) drug therapy; Z79.02 Long term (current) use of antithrombotics/antiplatelets; Z79.82 Long term (current) use of aspirin
CPT/HCPCS: 36415; 71045; 80053; 83605; 83880; 85025; 87040; 87635; 93005; 94640; 94760; J2930; J7620

== ENCOUNTER 2020-07-09 13:02 | Emergency (ER) | payer MEDICARE, OTHER ==
[2020-07-09 13:38] VITALS: TEMP 98.5
[2020-07-09] MEDS ORDERED: IPRATROPIUM/ALBUTEROL 3 ML VIAL NEB ONE ×2 (14:01→16:02)
--- NOTE | 2020-07-09 15:16 | RAD ---
EXAM DESCRIPTION: Chest,1 View CLINICAL HISTORY: 79 years Female, sob COMPARISON: July 05, 2020 TECHNIQUE: AP portable chest. FINDINGS: The lungs are clear of infiltrate. There is no effusion or nodule. The lungs appear hyperinflated with flattening of the diaphragms. There is hyperlucency of the lungs as well. These findings are most consistent with chronic emphysema. Moderate cardiomegaly without failure. IMPRESSION: COPD and cardiomegaly Electronically signed by: Savage Alvarado MD 07/09/2020 3:15 PM [facility]
[2020-07-09] MEDS ORDERED: AZITHROMYCIN 250 MG TAB PO ONE (16:10)
[2020-07-09] MEDS ORDERED: predniSONE 20 MG TAB PO ONE (16:10)
--- NOTE | 2020-07-09 16:13 | ED.PDOC ---
History of Present Illness - General Chief Complaint: Respiratory Problem Stated Complaint: shortness of breath Time Seen by Provider: 07/09/20 14:01 Source: patient Exam Limitations: no limitations - History of Present Illness Initial Comments: The patient is a 79-year-old female presented to emergency room secondary to persistent COPD exacerbation. She was seen several days ago and was placed on Levaquin and a prednisone taper. She is still having significant issues. She is really only doing her breathing treatments about every 6 hours at this point. No fever. No real productive cough. She tested negative for coronavirus here a few days ago. Timing/Duration: 1 week Severity: severe Improving Factors: nothing Worsening Factors: movement Associated Symptoms: cough, malaise, shortness of breath Allergies/Adverse Reactions: Allergies Levofloxacin [From Levaquin] Allergy (Verified 07/05/20 15:08) Home Medications: Ambulatory Orders Clopidogrel Bisulfate [Plavix] 75 mg PO DAILY 11/01/15 Metoprolol Tartrate 12.5 mg PO BID 11/01/15 Rosuvastatin Calcium [Crestor] 40 mg PO BEDTIME 11/01/15 Aspirin [Aspirin Adult Low Dose] 81 mg PO DAILY 02/19/18 Raloxifene HCl [Raloxifene Hydrochloride] 60 mg PO DAILY 02/19/18 Fenofibrate 150 mg PO BEDTIME 05/09/18 Citalopram Hydrobromide [Citalopram] 20 mg PO DAILY 10/08/19 Furosemide 20 mg PO DAILY 10/08/19 Dexlansoprazole [Dexilant] 60 mg PO DAILY 03/11/20 Upokptzhhlk-Acaotaplzxkb-Uwfly [Trelegy Ellipta 100-62.5-25 Mcg/INH] 1 puff INH 0700 03/12/20 Cefdinir 300 mg PO BID #16 capsule 03/13/20 Prednisone 60 mg PO DAILY 5 Days #15 tab 07/05/20 levoFLOXacin [Levaquin] 500 mg PO DAILY #7 tab 07/05/20 Review of Systems - Review of Systems Constitutional: States: malaise EENTM: States: no symptoms reported Respiratory: States: cough, short of breath, wheezing Cardiology: States: no symptoms reported Gastrointestinal/Abdominal: States: no symptoms reported Genitourinary: States: no symptoms reported Musculoskeletal: States: no symptoms reported Skin: States: no symptoms reported Neurological: States: no symptoms reported Endocrine: States: no symptoms reported All other Systems: No Change from Baseline Past Medical History (General) - Patient Medical History Hx Seizures: No Hx Stroke: No Hx Dementia: No Hx Asthma: No Hx of COPD: Yes Hx Cardiac Disorders: Yes - CABG, stints x 13 Hx Congestive Heart Failure: No Hx Pacemaker: No Hx Hypertension: No Hx Thyroid Disease: No Hx Diabetes: No Hx Gastroesophageal Reflux: Yes Hx Renal Disease: No Hx Cancer: No Hx of HIV: No Hx Hepatitis C: No Hx MRSA: No Surgical History: appendectomy, cholecystectomy, Hysterectomy - Vaccination History Hx Tetanus, Diphtheria Vaccination: No Hx Influenza Vaccination: Yes Hx Pneumococcal Vaccination: Yes - Social History Hx Tobacco Use: Yes - Pack a day Hx Chewing Tobacco Use: No Hx Alcohol Use: No Hx Substance Use: No Hx Substance Use Treatment: No Hx Depression: No Feels Threatened In Home Enviroment: No Feels Threatened In a Relationship: No Hx Physical Abuse: No Hx Emotional Abuse: No Hx Suspected Abuse: No - Female History Patient is a Female of Child Bearing Age (10 -59 yrs old): No Patient : No - Triage Comment ED Triage Comment: The patient was brought into the triage room in a wheelchair and had a noted cough. She was alert and oriented times 4 and had noted shortness of breath that the patient stated she has had for the past week. She was sent by her PCP for possible admission for IV antibiotic therapy. Family Medical History - Family History Mother Family History: Unknown Living Status: Hx Family Asthma: No Hx Family Congestive Heart Failure: No Hx Family Hypertension: No Hx Family Stroke: No Hx Cardiac Disease: No Hx Family Diabetes: Yes Hx Family Cancer: No Physical Exam - Physical Exam General Appearance: Alert, No apparent distress Eye Exam: bilateral normal Ears, Nose, Throat: hearing grossly normal, normal pharynx Neck: full range of motion, supple Respiratory: accessory muscle use, wheezing Cardiovascular/Chest: normal peripheral pulses, no edema, other - Regular rate Peripheral Pulses: radial,right: 2+, radial,left: 2+ Gastrointestinal/Abdominal: non tender, soft Rectal Exam: deferred Back Exam: no CVA tenderness, no vertebral tenderness Extremity: non-tender, normal inspection, no pedal edema, normal capillary refill 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 She has tested negative for coronavirus here and did respond well to DuoNeb's. The patient is going to be written for DuoNeb's for every 1-2 hour use for the next couple of days. She is also going to be written for additional prednisone at 40 mg a day. She does have to remain on her oxygen all day every day. She is correcting just fine with 2 L. She will also be written for azithromycin for the next 5 days. If she is obviously failing then she is to return to the emergency room. Laboratory work is reassuring. Strict ER warnings are given. Absolutely no smoking. hodan spicer [id number] - Results/Orders Results/Orders: Rapid coronavirus test is negative. Laboratory Tests 07/09/20 07/09/20 14:25 14:25 WBC 6.6 RBC 5.01 Hgb 12.2 Hct 37.5 MCV 74.9 L MCH 24.3 L MCHC 32.5 L RDW 15.6 H Plt Count 178 MPV 9.3 Absolute Neuts (auto) 5.20 Absolute Lymphs (auto) 1.20 Absolute Monos (auto) 0.20 Absolute Eos (auto) 0.00 Absolute Basos (auto) 0.00 Neutrophils % 78.6 H Lymphocytes % 17.3 L Monocytes % 3.5 Eosinophils % 0.2 L Basophils % 0.4 Normal RBC Morphology Stain quality accept Sodium 140 Potassium 3.9 Chloride 102 Carbon Dioxide 29 Anion Gap 12.9 BUN 20 H Creatinine 0.83 BUN/Creatinine Ratio 24.1 H Random Glucose 119 H Serum Osmolality 283.2 Calcium 8.6 Total Bilirubin 0.3 AST 19 ALT 13 Alkaline Phosphatase 34 L Creatine Kinase 33 CK-MB (CK-2) 3.0 CK-MB (CK-2) % Not Reportable Troponin I < 0.02 B-Natriuretic Peptide 118.0 H Serum Total Protein 6.9 Albumin 3.7 Globulin 3.2 Albumin/Globulin Ratio 1.2 Chest x-ray shows no acute infiltrates. She does have chronic changes of COPD. Departure - Departure Clinical Impression: COPD exacerbation Disposition: Discharge to Home or Self Care Condition: Fair Departure Forms: ED Discharge - Pt. Copy, Patient Portal Self Enrollment Instructions: Exacerbation of COPD Diet: regular diet Activity: increase activity as tolerated Referrals: SOLANGE TITUS MD [Primary Care Provider] - 1-2 Weeks Home Medications: Ambulatory Orders Clopidogrel Bisulfate [Plavix] 75 mg PO DAILY 11/01/15 Metoprolol Tartrate 12.5 mg PO BID 11/01/15 Rosuvastatin Calcium [Crestor] 40 mg PO BEDTIME 11/01/15 Aspirin [Aspirin Adult Low Dose] 81 mg PO DAILY 02/19/18 Raloxifene HCl [Raloxifene Hydrochloride] 60 mg PO DAILY 02/19/18 Fenofibrate 150 mg PO BEDTIME 05/09/18 Citalopram Hydrobromide [Citalopram] 20 mg PO DAILY 10/08/19 Furosemide 20 mg PO DAILY 10/08/19 Dexlansoprazole [Dexilant] 60 mg PO DAILY 03/11/20 Dqmvegucvqd-Ajhpncftfnaz-Mgift [Trelegy Ellipta 100-62.5-25 Mcg/INH] 1 puff INH 0700 03/12/20 Cefdinir 300 mg PO BID #16 capsule 03/13/20 Prednisone 60 mg PO DAILY 5 Days #15 tab 07/05/20 levoFLOXacin [Levaquin] 500 mg PO DAILY #7 tab 07/05/20 Additional Instructions: The patient is a 79-year-old female presented emergency room secondary to persistent COPD exacerbation. She has tested negative for coronavirus here and did respond well to DuoNeb's. The patient is going to be written for DuoNeb's for every 1-2 hour use for the next couple of days. She is also going to be written for additional prednisone at 40 mg a day. She does have to remain on her oxygen all day every day. She is correcting just fine with 2 L. She will also be written for azithromycin for the next 5 days. If she is obviously failing then she is to return to the emergency room. Laboratory work is reassuring. Strict ER warnings are given. Absolutely no smoking.
[2020-07-09 16:23] VITALS: O2SAT 95
[2020-07-09 16:47] VITALS: BP 131/80
== END 2020-07-09 16:47 | disposition home or self-care (01) ==
LOC: ER 13:02
DX: J44.1 Chronic obstructive pulmonary disease with (acute) exacerbation (principal); I51.9 Heart disease, unspecified; K21.9 Gastro-esophageal reflux disease without esophagitis; Z20.828 Contact with and (suspected) exposure to other viral communicable diseases; Z95.5 Presence of coronary angioplasty implant and graft; Z87.891 Personal history of nicotine dependence; Z79.899 Other long term (current) drug therapy; Z79.02 Long term (current) use of antithrombotics/antiplatelets; Z88.1 Allergy status to other antibiotic agents
CPT/HCPCS: 36415; 71045; 80053; 82550; 82553; 83880; 84484; 85025; 87040; 87186; 87635; J7512; J7620; Q0144

== ENCOUNTER 2020-09-23 21:48 | Inpatient (IN) | payer MEDICARE, OTHER ==
--- NOTE | 2020-09-23 22:42 | RAD ---
CLINICAL HISTORY: covid sob COMPARISON: 07/09/2020. 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 Sternotomy was performed. Lungs are clear without consolidation, atelectasis, mass or edema. There is no pleural effusion. There is no pneumothorax. There are no acute osseous findings. IMPRESSION: Clear lungs. Electronically signed by: Aristides Chambers MD 09/23/2020 10:40 PM GREENHOUSE INSTRUCTOR
[2020-09-23] MEDS ORDERED: SODIUM CHLORIDE 0.9% 1000ML 500 ML IVS ONE (23:00)
[2020-09-23] MEDS ORDERED: ACETYLCYSTEIN 20 % 6,000 MG/30 ML VIAL PO ONE (23:01)
[2020-09-23] MEDS ORDERED: ENOXAPARIN SODIUM 80 MG/0.8 ML SYG SUBCU ONE (23:05)
--- NOTE | 2020-09-24 00:07 | CT ---
PROCEDURE: CTA Chest CLINICAL HISTORY: 79 years Female covid, ddimer, hypoxia, chest pain TECHNIQUE: Contiguous axial images obtained through the chest were obtained from the thoracic inlet to the level of the upper abdomen during the pulmonary arterial phase of intravenous contrast administration. Coronal and sagittal reformatted and multiplanar MIP images provided. This CT exam was performed according to our departmental dose-optimization program, which includes one or more of the following dose reduction techniques: automated exposure control, adjustment of the mA and/or kV according to patient size, and/or use of iterative reconstruction technique. COMPARISON: Radiograph obtained earlier the same day FINDINGS: There is no pulmonary embolus. Prior median sternotomy and CABG. Atherosclerosis without thoracic aortic aneurysm or dissection. The heart is normal in size without pericardial effusion. Mild diffuse centrilobular emphysema. Bronchiectasis and airspace collapse vs. Infiltrate of the right middle lobe. Atelectasis in the lingula. The lungs are otherwise clear. Slight bronchiectasis and bronchial wall thickening in the lower lobes. The central airways are patent. No lymphadenopathy in the chest. There are no visualized acute osseous or upper abdominal abnormalities. Chronic mid thoracic compression fracture. IMPRESSION: No pulmonary embolus. Mild diffuse emphysema. Bronchiectasis and airspace collapse vs. infiltrate of the right middle lobe. Slight bronchiectasis and bronchial wall thickening in the lower lobes could be reactive or infectious. No other acute findings in the chest. Electronically signed by: Kerry Rivera MD 09/24/2020 12:05 AM SE[employer]ON[employer]
[2020-09-24] MEDS ORDERED: DEXAMETHASONE INJ 4 MG/ML VIAL IV ONE (00:09)
[2020-09-24] MEDS ORDERED: REMDESIVIR 200 MG in SODIUM CHLORIDE 0.9% 250ML 250 ML IVPB ONE (00:42)
[2020-09-24] MEDS ORDERED: AZITHROMYCIN IV 500 MG in SODIUM CHLORIDE 0.9% 250ML 250 ML IVPB ONE (00:48)
[2020-09-24] MEDS ORDERED: cefTRIAXone SODIUM 1 GM in SODIUM CHL 0.9% 50ML MIN-BAG+ 50 ML IVPB ONE (00:48)
[2020-09-24] MEDS ORDERED: IPRATROPIUM/ALBUTEROL 3 ML VIAL NEB ONE (01:04)
--- NOTE | 2020-09-24 05:10 | ED.PDOC ---
History of Present Illness - General Chief Complaint: Respiratory Problem Stated Complaint: COVID +, SOB Time Seen by Provider: 09/23/20 21:48 Source: patient Exam Limitations: no limitations - History of Present Illness Initial Comments: The patient is a 79-year-old female presented emergency room secondary to increased shortness of breath along with some central back pain. The patient had become more short of breath since she got her monoclonal antibody infusion for coronavirus earlier in the evening. The patient had actually gone off of her oxygen to go get the infusion and had actually not restarted it. When EMS arrived they were getting oxygen saturations in the mid 60s. The patient was put back on higher flow oxygen and given a breathing treatment and by the time she arrived here her oxygen saturations were back in the 90s and oxygen requirement was down to 4 L at that point. Since that time she has received a few more breathing treatments and oxygen requirements are back down to about 2- 1/2 L. This is a little more than she requires at baseline. The patient does have scattered rales and rhonchi. She was diagnosed with coronavirus about 6 days ago. She did undergo a course of steroids and is already finished that. Back pain resolved once oxygen saturations were corrected. EKG showed no evidence of acute pathology. Timing/Duration: unsure Severity: moderate Improving Factors: nothing Worsening Factors: nothing Associated Symptoms: cough, malaise, shortness of breath Allergies/Adverse Reactions: Allergies Levofloxacin [From Levaquin] Allergy (Verified 07/05/20 15:08) Home Medications: Ambulatory Orders Clopidogrel Bisulfate [Plavix] 75 mg PO BEDTIME 11/01/15 Metoprolol Tartrate 12.5 mg PO BID 11/01/15 Rosuvastatin Calcium [Crestor] 40 mg PO BEDTIME 11/01/15 Aspirin [Aspirin Adult Low Dose] 81 mg PO QAM 02/19/18 Raloxifene HCl [Raloxifene Hydrochloride] 60 mg PO QAM 02/19/18 Fenofibrate 150 mg PO BEDTIME 05/09/18 Citalopram Hydrobromide [Citalopram] 20 mg PO QAM 10/08/19 Furosemide 20 mg PO QAM PRN 10/08/19 Dexlansoprazole [Dexilant] 60 mg PO QAM 03/11/20 Citracal Calcium Vitamin 1 tablet PO DAILY 09/23/20 Zzqvjqgaaeo-Sqvpiyyazvub-Hebgv [Trelegy Ellipta 100-62.5-25 Mcg/INH] 1 aer IN DAILY 09/23/20 Review of Systems - Review of Systems Constitutional: States: malaise EENTM: States: no symptoms reported Respiratory: States: cough, short of breath Cardiology: States: no symptoms reported Gastrointestinal/Abdominal: States: no symptoms reported Genitourinary: States: no symptoms reported Musculoskeletal: States: back pain Skin: States: no symptoms reported Neurological: States: no symptoms reported Endocrine: States: no symptoms reported All other Systems: No Change from Baseline Past Medical History (General) - Patient Medical History Hx Seizures: No Hx Stroke: No Hx Dementia: No Hx Asthma: No Hx of COPD: Yes Hx Cardiac Disorders: Yes - CABG, stints x 13 Hx Congestive Heart Failure: No Hx Pacemaker: No Hx Hypertension: No Hx Thyroid Disease: No Hx Diabetes: No Hx Gastroesophageal Reflux: Yes Hx Renal Disease: No Hx Cancer: No Hx of HIV: No Hx Hepatitis C: No Hx MRSA: No Surgical History: cholecystectomy - Vaccination History Hx Tetanus, Diphtheria Vaccination: No Hx Influenza Vaccination: Yes Hx Pneumococcal Vaccination: Yes - Social History Hx Tobacco Use: Yes Hx Chewing Tobacco Use: No Hx Alcohol Use: No Hx Substance Use: No Hx Substance Use Treatment: No Hx Depression: No Hx Physical Abuse: No Hx Emotional Abuse: No Hx Suspected Abuse: No - Female History Patient : No Family Medical History - Family History Mother Family History: Unknown Living Status: Hx Family Asthma: No Hx Family Congestive Heart Failure: No Hx Family Hypertension: No Hx Family Stroke: No Hx Cardiac Disease: No Hx Family Diabetes: Yes Hx Family Cancer: No Physical Exam - Physical Exam General Appearance: Alert, Anxious, Frail Eye Exam: bilateral normal Ears, Nose, Throat: hearing grossly normal, normal pharynx Neck: non-tender, supple Respiratory: accessory muscle use, rales, rhonchi Cardiovascular/Chest: normal peripheral pulses, regular rate, rhythm, no edema Peripheral Pulses: radial,right: 2+, radial,left: 2+ Gastrointestinal/Abdominal: normal bowel sounds, non tender, soft Rectal Exam: deferred Back Exam: no CVA tenderness, no vertebral tenderness Extremity: normal range of motion, non-tender, normal inspection, no pedal edema, normal capillary refill 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, alert, normal mood/affect, oriented x 3 Skin Exam: normal color Comments: Vital Signs - 24 hr 09/23/20 09/23/20 09/23/20 21:51 21:55 23:00 Temperature 100.7 F H Pulse Rate Pulse Rate [ 98 H 82 monitor] Respiratory 24 24 20 Rate Blood Pressure 117/59 88/52 [Left Arm] O2 Sat by Pulse 96 95 Oximetry 09/24/20 09/24/20 09/24/20 00:00 01:00 01:15 Temperature 99.9 F H Pulse Rate 81 Pulse Rate [ 80 76 monitor] Respiratory 20 20 18 Rate Blood Pressure 100/65 117/62 [Left Arm] O2 Sat by Pulse 94 L 97 97 Oximetry 09/24/20 09/24/20 09/24/20 02:00 03:00 04:00 Temperature 100.1 F H Pulse Rate Pulse Rate [ 81 77 72 monitor] Respiratory 20 22 17 Rate Blood Pressure 104/64 115/64 107/64 [Left Arm] O2 Sat by Pulse 97 95 96 Oximetry Progress - Progress Progress: 09/24/20 05:11 The patient is a 79-year-old female presented emergency room secondary to shortness of breath back pain. The back pain did not start until the patient went off of her oxygen for several hours. She did become severely hypoxic during this time. Oxygenation has corrected fairly quickly with replacement and nebulizer treatments. The patient does have scattered infiltrates in the lung locke consistent with coronavirus. She is being placed on remdesivir, dexamethasone, Rocephin, azithromycin. Additionally patient had an elevated D- dimer and had a CT angiogram performed which showed no evidence of any pulmonary embolus but did confirm the pulmonary infiltrates. She has been started on Lovenox treatment dose. The patient did receive a small IV fluid bolus along with a dose of oral Mucomyst for renal protective purposes. The patient is being managed for Covid pneumonia for continued care. The back pain the patient had was likely angina related to global hypoxia. Again it resolved with oxygenation. Troponin was elevated very mildly initially but has returned to normal. No elevation of the CK-MB. hodan spicer [id number] 09/24/20 05:14 - Results/Orders Results/Orders: 09/23/20 21:55 Telemetry .CONTINUOUS 09/23/20 21:56 Oxygen Delivery Assessment: QSHIFT 09/23/20 22:00 BLOOD CULTURE Stat EKG STAT 09/24/20 09:00 Oxygen Daily Laboratory Results - last 24 hr 09/23/20 09/23/20 09/23/20 21:45 21:45 21:45 WBC 10.9 H RBC 5.40 Hgb 12.8 Hct 40.4 MCV 74.7 L MCH 23.7 L MCHC 31.8 L RDW 16.7 H Plt Count 185 MPV 9.4 Absolute Neuts (auto) 8.80 H Absolute Lymphs (auto) 1.10 Absolute Monos (auto) 0.90 H Absolute Eos (auto) 0.00 Absolute Basos (auto) 0.00 Neutrophils % 80.8 H Lymphocytes % 10.2 L Monocytes % 8.4 Eosinophils % 0.4 L Basophils % 0.2 PT INR PTT (SP) Fibrinogen D-Dimer, Quantitative Sodium 136 Potassium 3.9 Chloride 99 L Carbon Dioxide 26 Anion Gap 14.9 BUN 19 H Creatinine 0.88 BUN/Creatinine Ratio 21.6 H Random Glucose 86 Serum Osmolality 273.5 L Lactic Acid Calcium 9.1 Magnesium 1.7 L Ferritin 22.9 Total Bilirubin 0.5 AST 28 ALT 15 Alkaline Phosphatase 35 L LD Total 166 Creatine Kinase 88 CK-MB (CK-2) 3.1 CK-MB (CK-2) % Not Reportable Troponin I 0.08 H* C-Reactive Protein < 0.8 B-Natriuretic Peptide 33.9 Serum Total Protein 7.2 Albumin 4.0 Globulin 3.2 Albumin/Globulin Ratio 1.3 TSH 3.02 Urine Color Urine Appearance Urine pH Ur Specific [place] Urine Protein Urine Glucose (UA) Urine Ketones Urine Blood Urine Nitrite Urine Bilirubin Urine Urobilinogen Ur Leukocyte Esterase Urine RBC Urine WBC Ur Epithelial Cells Urine Bacteria 09/23/20 09/23/20 09/24/20 21:45 21:45 00:50 WBC RBC Hgb Hct MCV MCH MCHC RDW Plt Count MPV Absolute Neuts (auto) Absolute Lymphs (auto) Absolute Monos (auto) Absolute Eos (auto) Absolute Basos (auto) Neutrophils % Lymphocytes % Monocytes % Eosinophils % Basophils % PT 10.7 INR 1.08 PTT (SP) 23.0 Fibrinogen 256 D-Dimer, Quantitative 1340.0 H* Sodium Potassium Chloride Carbon Dioxide Anion Gap BUN Creatinine BUN/Creatinine Ratio Random Glucose Serum Osmolality Lactic Acid 1.7 Calcium Magnesium Ferritin Total Bilirubin AST ALT Alkaline Phosphatase LD Total Creatine Kinase 66 CK-MB (CK-2) 2.2 CK-MB (CK-2) % Not Reportable Troponin I 0.06 H C-Reactive Protein B-Natriuretic Peptide Serum Total Protein Albumin Globulin Albumin/Globulin Ratio TSH Urine Color Urine Appearance Urine pH Ur Specific [place] Urine Protein Urine Glucose (UA) Urine Ketones Urine Blood Urine Nitrite Urine Bilirubin Urine Urobilinogen Ur Leukocyte Esterase Urine RBC Urine WBC Ur Epithelial Cells Urine Bacteria 09/24/20 09/24/20 03:23 03:39 WBC RBC Hgb Hct MCV MCH MCHC RDW Plt Count MPV Absolute Neuts (auto) Absolute Lymphs (auto) Absolute Monos (auto) Absolute Eos (auto) Absolute Basos (auto) Neutrophils % Lymphocytes % Monocytes % Eosinophils % Basophils % PT INR PTT (SP) Fibrinogen D-Dimer, Quantitative Sodium Potassium Chloride Carbon Dioxide Anion Gap BUN Creatinine BUN/Creatinine Ratio Random Glucose Serum Osmolality Lactic Acid Calcium Magnesium Ferritin Total Bilirubin AST ALT Alkaline Phosphatase LD Total Creatine Kinase 64 CK-MB (CK-2) 2.4 CK-MB (CK-2) % Not Reportable Troponin I 0.04 C-Reactive Protein B-Natriuretic Peptide Serum Total Protein Albumin Globulin Albumin/Globulin Ratio TSH Urine Color Yellow Urine Appearance Clear Urine pH 5.5 Ur Specific [place] 1.010 Urine Protein Negative Urine Glucose (UA) Negative Urine Ketones Negative Urine Blood Negative Urine Nitrite Negative Urine Bilirubin Negative Urine Urobilinogen 0.2 Ur Leukocyte Esterase Negative Urine RBC 0 Urine WBC 0 Ur Epithelial Cells 0-1 Urine Bacteria 0 Influenza is negative. EKG showed normal sinus rhythm at 94 bpm. Mild left axis deviation and poor R wave progression consistent with a bundle branch block along with a increased QT interval. Difficult to interpret secondary to the bundle branch block. Left atrial dilation. Chest x-ray showed right midlung infiltrate. See report for full details. Departure - Departure Clinical Impression: Pneumonia due to COVID-19 virus, Hypoxia Disposition: Admit Patient Departure Forms: ED Discharge - Pt. Copy, Patient Portal Self Enrollment Referrals: SOLANGE TITUS MD [Primary Care Provider] - 1-2 Weeks Home Medications: Ambulatory Orders Clopidogrel Bisulfate [Plavix] 75 mg PO BEDTIME 11/01/15 Metoprolol Tartrate 12.5 mg PO BID 03/13/16 Rosuvastatin Calcium [Crestor] 40 mg PO BEDTIME 11/01/15 Aspirin [Aspirin Adult Low Dose] 81 mg PO QAM 02/19/18 Raloxifene HCl [Raloxifene Hydrochloride] 60 mg PO QAM 02/19/18 Fenofibrate 150 mg PO BEDTIME 05/09/18 Citalopram Hydrobromide [Citalopram] 20 mg PO QAM 10/08/19 Furosemide 20 mg PO QAM PRN 10/08/19 Dexlansoprazole [Dexilant] 60 mg PO QAM 03/11/20 Citracal Calcium Vitamin 1 tablet PO DAILY 09/23/20 Hsodnsiwfkk-Ibuoaihnrjhh-Vfwaa [Trelegy Ellipta 100-62.5-25 Mcg/INH] 1 aer IN DAILY 09/23/20 Decision To Admit - Decistion To Admit Decision to Admit Reason: Medical Nature Decision to Admit Date: 09/24/20 Decision to Admit Time: 05:14
--- NOTE | 2020-09-24 05:20 | HP ---
SUPERVISING PHYSICIAN: Reece Santiago M.D. CHIEF COMPLAINT: Shortness of breath. HISTORY OF PRESENT ILLNESS: This is a 79 year-old female patient who came to the Emergency Room secondary to worsening shortness of breath as well as some central back pain. She actually got her monoclonal antibody infusion for Coronavirus, earlier on the day of the Emergency Room admission. She is normally on home O2, mostly at night. She came to get her monoclonal infusion, but did not bring her oxygen. When she got home, she was extremely short of breath and EMS was called. Upon arrival, her O2 saturations were in the mid 60s. She was given some breathing treatments as well as oxygen at 5-6 lpm, and by the time she got to the Emergency Room her O2 saturations were around 90% and they had actually titrated down the O2 down to 4 liters per minute. She had several breathing treatments in the Emergency Room and her initial vital signs were temperature 100.7 with heart rate 98, blood pressure 112/66, respiratory rate 24, O2 saturation was 92% on 4 liters nasal cannula. She was diagnosed with COVID several days prior to coming to the Emergency Room. Her other labs showed WBC of 10,900 with hemoglobin 12.8, hematocrit 40.4. She had a left shift on her differential. D-dimer was 1,340, fibrinogen 256. Chemistries were within normal limits with the exception of her magnesium was 1.7, BUN 19, creatinine 0.88. Troponin initially was 0.08. About 3 hours later it came down to 0.06 and prior to admission it came down an normalized to 0.04. Urinalysis was unremarkable. Blood cultures were drawn. Influenza A and B by PCR were both negative. Chest x-ray showed clear lungs but her CTA chest and thorax showed: 1. No pulmonary embolus. 2. Mild diffuse emphysema, bronchiectasis and airspace collapse versus infiltrate on the right middle lobe. Slight bronchiectasis and bronchial wall thickening in the lower lobes, could be reactive or infectious. She was given Remdesivir, Decadron, azithromycin, Ceftriaxone, as well as multiple breathing treatments in the Emergency Room and she was admitted to the hospital. PAST MEDICAL HISTORY: 1. Chronic obstructive pulmonary disease. 2. Coronary artery stenosis. 3. Coronary artery disease. 4. Hyperlipidemia. PAST SURGICAL HISTORY: 1. Coronary artery bypass graft times 3 grafts. 2. section. OUTPATIENT MEDICATIONS: 1. Aspirin. 2. Citalopram. 3. Citracal. 4. Plavix. 5. Dexilant. 6. Fenofibrate. 7. Ptficigryze-Gfhjmlcmcxxg-Szxsj. 8. Furosemide. 9. Metoprolol. 10. Ranexa. 11. Crestor. ALLERGIES: LEVAQUIN. FAMILY HISTORY: Noncontributory. SOCIAL HISTORY: She is retired. She has 5 children. She is currently a smoker. She smokes about 1 pack of cigarettes daily. She denies any ETOH or illicit drug use. REVIEW OF SYSTEMS: GENERAL: Positive for fever. Negative for fatigue or weight changes. HEENT: Negative for sinus symptoms, ear pain, vision changes or sore throat. RESPIRATORY: As per History of Present Illness. CARDIAC: Negative for chest pain, palpitations or tachycardia. GASTROINTESTINAL: Negative for nausea, vomiting, diarrhea or constipation. GENITOURINARY: Negative for hematuria, dysuria or polyuria. MUSCULOSKELETAL: Positive for back pain. SKIN: Negative for lesions or rashes. NEUROLOGIC: Negative for headache, weakness or seizures. PHYSICAL EXAMINATION: VITAL SIGNS: 97.6, heart rate 68, blood pressure 128/68, respiratory rate 20, O2 saturation 94% on 2.5 liters nasal cannula. GENERAL: This is a 79-year-old female patient who is sitting up in her hospital bed. She is in mild respiratory distress. HEENT: Normocephalic, atraumatic. Pupils are equal and reactive. Oropharynx is clear. NECK: Supple. RESPIRATORY: She is somewhat diminished throughout, but there are a few scattered rhonchi as well. She is slightly tachypneic with speaking. She can only speak in 3 to 4 word phrases without getting short of breath. CARDIOVASCULAR: Regular rate and rhythm. GASTROINTESTINAL: Abdomen is soft, nondistended, nontender. Bowel sounds are positive. EXTREMITIES: No cyanosis, clubbing or edema. NEUROLOGIC: Awake, alert and oriented times three. Cranial nerves II-XII are grossly intact as tested. SKIN: [place], warm and dry. LABORATORY: Labs and films are as per the History of Present Illness. ASSESSMENT: 1. COVID-19 pneumonitis. 2. Chronic obstructive pulmonary disease with acute exacerbation in a current smoker. 3. Sepsis related to bilateral pneumonia, community acquired with an admitting temperature of 100.7, heart rate 98, respiratory rate 24, and O2 saturation in the 60s and WBC of 10,900. 4. Bronchiectasis. 5. Hypoxic respiratory failure with O2 saturations in the 60s. 6. Elevated Troponin without chest pain or EKG changes, most likely secondary to hypoxia. 7. Coronary artery disease. 8. Hyperlipidemia. PLAN: The patient has been admitted to the hospital. She will continue on the COVID guidelines, including azithromycin, Rocephin, Remdesivir, Decadron as well as Lovenox. She will vital signs Align and Mucinex. Will follow her labs closely. She will have aggressive pulmonary hygiene, including short-acting beta agonist both p.r.n. and scheduled. She will have Lovenox for DVT prophylaxis and a PPI for ulcer prophylaxis. I have also started the pneumonia guidelines. Her home medications will be restarted as soon as they are verified. I will hold her Lasix for now as it is a p.r.n. and she can have that as needed. She does wear oxygen at home. Will continue to follow and treat as needed. #[id number] [facility]
[2020-09-24] MEDS ORDERED: MAGNESIUM SULFATE PREMIX 2GM 2 GM in PREMIX BAG 1 BAG IVPB ONE (08:12)
[2020-09-24] MEDS ORDERED: ONDANSETRON INJ 4 MG/2 ML VIAL IV PRN (08:12)
[2020-09-24] MEDS ORDERED: SODIUM CHLORIDE 0.9% (FLUSH) 10 ML SYG IV PRN (08:12)
[2020-09-24] MEDS ORDERED: ALBUTEROL INHALER 64 PUFF/8GM INH PRN (08:16)
[2020-09-24] MEDS ORDERED: MAGNESIUM SULFATE PREMIX 2GM 50 ML IVPB ONE (08:20)
[2020-09-24] MEDS ORDERED: IV SET AND CAP CHANGE INJ INJ SCH (08:30)
[2020-09-24] MEDS: BIFIDOBACTERIUM INFANTIS 4 MG CAP PO SCH ×2 (08:43→20:52)
[2020-09-24] MEDS ORDERED: guaiFENesin ER TAB 600 MG TAB ONE (09:33)
[2020-09-24] MEDS: DEXAMETHASONE INJ 10 MG/ML VIAL IV SCH (09:57)
[2020-09-24] MEDS: AZITHROMYCIN IV 500 MG in SODIUM CHLORIDE 0.9% 250ML 250 ML IVPB SCH (09:57)
[2020-09-24] MEDS: guaiFENesin ER TAB 600 MG TAB PO SCH ×2 (09:57→20:52)
[2020-09-24] MEDS: cefTRIAXone SODIUM 1 GM in SODIUM CHL 0.9% 50ML MIN-BAG+ 50 ML IVPB SCH (09:57)
[2020-09-24] MEDS: SODIUM CHLORIDE 0.9% (FLUSH) 10 ML SYG IV SCH ×2 (09:57→20:53)
[2020-09-24] MEDS ORDERED: SODIUM CHLORIDE 0.9% 250ML 250 ML ONE (11:46)
[2020-09-24] MEDS ORDERED: REMDESIVIR IV 100 MG VIAL ONE (11:46)
[2020-09-24] MEDS: ALBUTEROL INHALER 64 PUFF/8GM INH SCH ×3 (12:00→20:35)
[2020-09-24] MEDS: REMDESIVIR 100 MG in SODIUM CHLORIDE 0.9% 250ML 250 ML IVPB SCH (12:14)
[2020-09-24] MEDS ORDERED: ENOXAPARIN SODIUM 40 MG/0.4 ML SYG SUBCU ONE (18:54)
[2020-09-24] MEDS: METOPROLOL TARTRATE 25 MG TAB PO SCH (20:52)
[2020-09-24] MEDS: ENOXAPARIN SODIUM 40 MG/0.4 ML SYG SUBCU SCH (20:53)
[2020-09-24] MEDS: CLOPIDOGREL 75 MG TAB PO SCH (20:53)
[2020-09-24] MEDS ORDERED: FENOFIBRATE 150 MG PO SCH (21:00)
[2020-09-24] MEDS ORDERED: NON-FORMULARY MEDICATION 1 EA MIS (Rosuvastatin Calcium [Crestor] 40 MG) PO SCH (21:00)
[2020-09-25] MEDS ORDERED: PANTOPRAZOLE SODIUM IV 40 MG VIAL ONE (04:26)
[2020-09-25] MEDS: ALBUTEROL INHALER 64 PUFF/8GM INH SCH ×6 (04:41→19:40)
[2020-09-25] MEDS ORDERED: PANTOPRAZOLE SODIUM IV 40 MG VIAL IV SCH (06:30)
--- NOTE | 2020-09-25 06:34 | RAD ---
EXAM DESCRIPTION: Chest,1 View CLINICAL HISTORY: covid COMPARISON: 09/23/2020 FINDINGS: Single frontal view of the chest. Tubes and lines: Leads overlie the chest. Cardiomediastinal silhouette: Stable Lungs: No consolidation, pneumothorax, or pleural effusion. Hyperinflation. Bones: Stable. Upper abdomen: Stable. IMPRESSION: 1. Stable appearance of the chest. Electronically signed by: Reece Arellano 09/25/2020 6:33 AM CORONER
[2020-09-25] MEDS: CITALOPRAM HBR 20 MG TAB PO SCH (09:15)
[2020-09-25] MEDS: DEXAMETHASONE INJ 10 MG/ML VIAL IV SCH (09:15)
[2020-09-25] MEDS: METOPROLOL TARTRATE 25 MG TAB PO SCH ×2 (09:15→20:21)
[2020-09-25] MEDS: guaiFENesin ER TAB 600 MG TAB PO SCH ×2 (09:15→20:21)
[2020-09-25] MEDS: ASPIRIN (CHEWABLE) 81 MG TAB PO SCH (09:15)
[2020-09-25] MEDS: BIFIDOBACTERIUM INFANTIS 4 MG CAP PO SCH ×2 (09:15→20:21)
[2020-09-25] MEDS: NON-FORMULARY MEDICATION 1 EA MIS (Fluticasone-Umeclidinium-Vilan [Trelegy Ellipta 100-62. IN SCH (09:17)
[2020-09-25] MEDS: [UNRECOGNIZED DRUG - OTHER] PO SCH (09:17)
[2020-09-25] MEDS: NON-FORMULARY MEDICATION 1 EA MIS (Raloxifene Hcl [Raloxifene Hydrochloride] 60 MG) PO SCH (09:18)
[2020-09-25] MEDS: cefTRIAXone SODIUM 1 GM in SODIUM CHL 0.9% 50ML MIN-BAG+ 50 ML IVPB SCH (09:20)
[2020-09-25] MEDS: SODIUM CHLORIDE 0.9% (FLUSH) 10 ML SYG IV SCH ×2 (09:20→20:21)
[2020-09-25] MEDS: AZITHROMYCIN IV 500 MG in SODIUM CHLORIDE 0.9% 250ML 250 ML IVPB SCH (09:56)
[2020-09-25] MEDS: NICOTINE PATCH 14 MG TD SCH (11:03)
[2020-09-25] MEDS: REMDESIVIR 100 MG in SODIUM CHLORIDE 0.9% 250ML 250 ML IVPB SCH (12:25)
--- NOTE | 2020-09-25 13:25 | PN ---
SUPERVISING PHYSICIAN: Ellen Santiago MD DATE: 09/25/20 SUBJECTIVE: The patient seems to be doing well. She does wear oxygen at home and is maintaining her normal O2 saturations. She is a little anxious due to the fact that she is quite a heavy smoker and discussed starting her on a nicotine patch. Otherwise, no chest pains, no worsening shortness of breath at this point. She does remain afebrile. OBJECTIVE: VITAL SIGNS: Temperature 98.5, pulse 69, blood pressure 122/68, respirations 20, saturation 97% on 2 liters nasal cannula. GENERAL: The patient is resting comfortably, in no acute distress. She is alert. CHEST: Lung are diminished throughout. No obvious wheezes, rales or rhonchi. HEART: Regular rate and rhythm. ABDOMEN: Soft, nontender. Positive bowel sounds. EXTREMITIES: No edema. NEUROLOGIC: Alert and oriented times three. LABORATORY: White count 6,700, hemoglobin 11.1, hematocrit 36.0, platelet count 175,000. Differential is without a left shift today. Coagulation studies show D-dimer down to 597. Chemistries show normal electrolytes with creatinine 0.75, calcium 8.5, magnesium 2.0. Liver functions all within normal limits. Troponin down to less than 0.02. C-reactive protein 3.2. MICROBIOLOGY: Blood cultures remain negative after 24 hours. RADIOLOGY: Repeat chest x-ray, single-view, per radiologic interpretation shows stable appearance of the chest, no consolidations, pneumothorax or pleural effusions. ASSESSMENT: 1. COVID-19 pneumonitis. 2. Chronic obstructive pulmonary disease with underlying bronchiectasis with acute exacerbation with developing bilateral pneumonia, secondary to #1. 3. Sepsis with bilateral pneumonia, community acquired. 4. Hypoxic respiratory failure in a patient who is chronically O2 dependent, exacerbated by #1. 5. Elevated troponin with no acute chest pain or EKG changes, secondary to hypoxia with resulting ischemic demand. 6. Coronary artery disease. 7. Hyperlipidemia. 8. Chronic nicotine addiction in a smoker. PLAN: We will continue current plan of care with COVID treatment with azithromycin, Rocephin, remdesivir, Decadron and Lovenox. We will continue with aggressive pulmonary hygiene. She remains on DVT prophylaxis with Lovenox. I did discuss with Dr. Santiago discharging patient and will likely need to go home on low dose Eliquis until she is seen in followup. I did start her on a nicotine patch. Her home medications have reviewed, updated, verified and restarted as appropriate to care. I anticipate hopefully discharging tomorrow. Until then, we will continue to monitor and treat as needed. #[id number] [facility]
[2020-09-25] MEDS ORDERED: ATORVASTATIN 20 MG TAB PO ONE (18:47)
[2020-09-25] MEDS ORDERED: FENOFIBRIC ACID 135 MG CAP ONE (18:47)
[2020-09-25] MEDS: ENOXAPARIN SODIUM 40 MG/0.4 ML SYG SUBCU SCH (20:20)
[2020-09-25] MEDS: CLOPIDOGREL 75 MG TAB PO SCH (20:21)
[2020-09-25] MEDS ORDERED: ATORVASTATIN 20 MG TAB PO SCH (21:00)
[2020-09-25] MEDS ORDERED: FENOFIBRIC ACID 135 MG CAP PO SCH (21:00)
[2020-09-26] MEDS: ALBUTEROL INHALER 64 PUFF/8GM INH SCH ×3 (00:30→08:30)
[2020-09-26] MEDS ORDERED: PANTOPRAZOLE SODIUM TAB 40 MG PO ONE (04:57)
[2020-09-26] MEDS ORDERED: PANTOPRAZOLE SODIUM TAB 40 MG PO SCH (06:30)
--- NOTE | 2020-09-26 07:54 | RAD ---
Exam(s): XR CHEST 1 VIEW: 09/26/2020 7:00 AM PURCHASING ADMINISTRATOR Indication: covid Comparison Study Date: September 25, 2020 Technique: AP chest radiograph. Findings: Large lung volumes consistent with COPD. The lungs remain clear. No focal infiltrate or generalized edema. No pleural effusion or pneumothorax. Heart size is normal. Unchanged mediastinal contours. Sternotomy wires are present. No bone abnormality is identified. IMPRESSION: COPD. No evidence of pneumonia. Electronically signed by: Fred Gibbs MD 09/26/2020 7:53 AM PURCHASING ADMINISTRATOR
[2020-09-26] MEDS: BIFIDOBACTERIUM INFANTIS 4 MG CAP PO SCH (08:47)
[2020-09-26] MEDS: CITALOPRAM HBR 20 MG TAB PO SCH (08:47)
[2020-09-26] MEDS: ASPIRIN (CHEWABLE) 81 MG TAB PO SCH (08:47)
[2020-09-26] MEDS: METOPROLOL TARTRATE 25 MG TAB PO SCH (08:47)
[2020-09-26] MEDS: guaiFENesin ER TAB 600 MG TAB PO SCH (08:47)
[2020-09-26] MEDS: DEXAMETHASONE INJ 10 MG/ML VIAL IV SCH (08:47)
[2020-09-26] MEDS: NON-FORMULARY MEDICATION 1 EA MIS (Fluticasone-Umeclidinium-Vilan [Trelegy Ellipta 100-62. IN SCH (08:48)
[2020-09-26] MEDS: NICOTINE PATCH 14 MG TD SCH (08:48)
[2020-09-26] MEDS: [UNRECOGNIZED DRUG - OTHER] PO SCH (08:48)
[2020-09-26] MEDS: NON-FORMULARY MEDICATION 1 EA MIS (Raloxifene Hcl [Raloxifene Hydrochloride] 60 MG) PO SCH (08:49)
[2020-09-26] MEDS: SODIUM CHLORIDE 0.9% (FLUSH) 10 ML SYG IV SCH (08:51)
[2020-09-26] MEDS: cefTRIAXone SODIUM 1 GM in SODIUM CHL 0.9% 50ML MIN-BAG+ 50 ML IVPB SCH (08:51)
[2020-09-26] MEDS ORDERED: REMOVE OLD PATCH TOP SCH (09:00)
[2020-09-26] MEDS ORDERED: DEXAMETHASONE INJ 10 MG/ML VIAL PO SCH (09:30)
[2020-09-26] MEDS ORDERED: CEFDINIR 300 MG CAP PO SCH (09:30)
[2020-09-26] MEDS ORDERED: APIXABAN 5 MG TAB PO SCH (09:30)
[2020-09-26] MEDS ORDERED: AZITHROMYCIN 250 MG TAB PO SCH (09:30)
[2020-09-26 09:31] VITALS: BP 107/61; TEMP 98.2; O2SAT 97
[2020-09-26] MEDS ORDERED: CEFDINIR 300 MG CAP ONE (09:37)
[2020-09-26] MEDS ORDERED: AZITHROMYCIN 250 MG TAB PO ONE (09:38)
[2020-09-26] MEDS ORDERED: APIXABAN 5 MG TAB PO ONE (09:38)
--- NOTE | 2020-09-27 13:15 | DS ---
SUPERVISING PHYSICIAN: Reece Santiago M.D. ADMISSION DIAGNOSES: 1. COVID-19 pneumonitis. 2. Chronic obstructive pulmonary disease with acute exacerbation in a current smoker. 3. Sepsis related to bilateral pneumonia, community acquired with an admitting temperature of 100.7, heart rate 98, respiratory rate 24, and O2 saturation in the 60s and WBC of 10,900. 4. Bronchiectasis. 5. Hypoxic respiratory failure with O2 saturations in the 60s. 6. Elevated Troponin without chest pain or EKG changes, most likely secondary to hypoxia. 7. Coronary artery disease. 8. Hyperlipidemia. DISCHARGE DIAGNOSES: 1. COVID-19 pneumonitis. 2. Chronic obstructive pulmonary disease with underlying bronchiectasis with acute exacerbation with developing bilateral pneumonia, secondary to #1. 3. Sepsis with bilateral pneumonia, community acquired. 4. Hypoxic respiratory failure in a patient who is chronically O2 dependent, exacerbated by #1. 5. Elevated troponin with no acute chest pain or EKG changes, secondary to hypoxia with resulting ischemic demand. 6. Coronary artery disease. 7. Hyperlipidemia. 8. Chronic nicotine addiction in a smoker. REASON FOR HOSPITALIZATION: This is a 79 year-old female patient who came to the Emergency Room secondary to worsening shortness of breath as well as some central back pain. She actually got her monoclonal antibody infusion for Coronavirus, earlier on the day of the Emergency Room admission. She is normally on home O2, mostly at night. She came to get her monoclonal infusion, but did not bring her oxygen. When she got home, she was extremely short of breath and EMS was called. Upon arrival, her O2 saturations were in the mid 60s. She was given some breathing treatments as well as oxygen at 5-6 lpm, and by the time she got to the Emergency Room her O2 saturations were around 90% and they had actually titrated down the O2 down to 4 liters per minute. She had several breathing treatments in the Emergency Room and her initial vital signs were temperature 100.7 with heart rate 98, blood pressure 112/66, respiratory rate 24, O2 saturation was 92% on 4 liters nasal cannula. She was diagnosed with COVID several days prior to coming to the Emergency Room. Her other labs showed WBC of 10,900 with hemoglobin 12.8, hematocrit 40.4. She had a left shift on her differential. D-dimer was 1,340, fibrinogen 256. Chemistries were within normal limits with the exception of her magnesium was 1.7, BUN 19, creatinine 0.88. Troponin initially was 0.08. About 3 hours later it came down to 0.06 and prior to admission it came down an normalized to 0.04. Urinalysis was unremarkable. Blood cultures were drawn. Influenza A and B by PCR were both negative. LABORATORY: White count on discharge was 6,900, hemoglobin 11.5, hematocrit 36.7. Differential did show to be without a left shift. Her RBC indices indicated a microcytic, hypochromic anemia. Coagulation studies showed D-dimer initially of 1340, at discharge was 759. PT/PTT were normal as well as fibrinogen at 262. Chemistries on discharge showed a sodium of 137, potassium 3.3, creatinine 0.74, magnesium 1.7, calcium 8.6, C-reactive protein down to 1.3. Troponins less than 0.02. She did have maximum troponin initially on admission of 0.08. TSH normal at 3.02. Urinalysis was unremarkable. MICROBIOLOGY: Blood cultures were negative at 48 hours. Influenza A and B were negative by PCR. RADIOLOGY: 12-lead EKG on admission in the Emergency Room showed a sinus rhythm of 94 with no obvious T-wave changes but difficult to fully assess due to bundle branch block. Chest x-ray showed showed a right midlung infiltrate. She also had a CT of the chest which showed no pulmonary embolus with mild diffuse emphysema, bronchiectasis and airspace collapse versus infiltrate in the right middle lobe. Please see that full detailed report. HOSPITAL COURSE: Ms. Mortensen was admitted for treatment of Covid pneumonia. She had previously had a monoclonal infusion. She is 02 dependent due to her advanced chronic obstructive pulmonary disease and emphysema. She did very well while in the hospital. Vital signs showed on initial admission, oxygen saturation off oxygen in the low 60s but back on oxygen she was 96% on 2 liters. She did have a mild temperature of 100.7 initially. After treatment with Remdesivir, Rocephin, Decadron, azithromycin, breathing treatments, oxygen, she was actually doing much better clinically. In fact, on discharge she was maintaining room air saturations at 97%. Temperature 98.2, pulse 67, blood pressure 107/61. She actually had no chest pain, no recurrence of any ectopy. Her troponin had been trending down and it was felt she had clinically improved well enough to continue with outpatient management. PLAN: The patient was discharged to followup with Dr. Santiago. I did discuss the case with Dr. Santiago and based off her D-Dimer initially and her risk factors, she was started on Eliquis at discharge, 2.5 mg b.i.d. which will be continued at Dr. Santiago's discretion. She was given samples from the clinic. She was to resume her usual activities as tolerated and wear oxygen as previous and as instructed. She will have a Telemedicine visit on September 30 at 10:15 A.M. She is to return to the Emergency Room or call Dr. Santiago's office should she have any concerning symptoms. Medications prescribed on discharge: 1. Align 4 mg twice a day while on antibiotics. 2. Decadron 6 mg daily, #6, no refills. 3. Eliquis 2.5 mg twice a day, #30, samples provided from the clinic 2.5 mg tablets. 4. Cefdinir 300 mg b.i.d., #10, no refills. CONDITION ON DISCHARGE: Stable and improving. DISPOSITION: The patient was discharged home. #[id number] [facility]
== END 2020-09-26 11:05 | disposition home or self-care (01) | DRG 871 ==
LOC: ER 21:48 → OBSVTOIN 09-24 05:19 → MS 09-24 05:19
PROVIDERS: ADMIT Nurse Practitioner Acute Care; ATTEND Nurse Practitioner Family
PROC: B32T1ZZ Computerized Tomography (CT Scan) of Left Pulmonary Artery using Low Osmolar Contrast (ICD-10-PCS; principal; 2020-09-23)
PROC: B32S1ZZ Computerized Tomography (CT Scan) of Right Pulmonary Artery using Low Osmolar Contrast (ICD-10-PCS; 2020-09-23)
PROC: XW033E5 Introduction of Remdesivir Anti-infective into Peripheral Vein, Percutaneous Approach, New Technology Group 5 (ICD-10-PCS; 2020-09-24)
DX: A41.89 Other specified sepsis (principal); U07.1 COVID-19; J12.82 Pneumonia due to coronavirus disease 2019; J96.21 Acute and chronic respiratory failure with hypoxia; J43.9 Emphysema, unspecified; Z99.81 Dependence on supplemental oxygen; R79.89 Other specified abnormal findings of blood chemistry; I25.10 Atherosclerotic heart disease of native coronary artery without angina pectoris; E78.5 Hyperlipidemia, unspecified; F17.210 Nicotine dependence, cigarettes, uncomplicated; Z95.1 Presence of aortocoronary bypass graft; Z79.82 Long term (current) use of aspirin; Z79.02 Long term (current) use of antithrombotics/antiplatelets; Z88.1 Allergy status to other antibiotic agents; Z79.899 Other long term (current) drug therapy